=== PATIENT | female | born 1950 ===

== ENCOUNTER 2019-01-09 11:17 | Inpatient (IN) | payer MEDICAID, MEDICARE, OTHER ==
[2019-01-09 11:17] VITALS: BMI 25.7
[2019-01-09] MEDS ORDERED: Albuterol-Ipratrop 3 mg / 0.5 (3 ml) UD ONE ×3 (11:27→12:57)
[2019-01-09] MEDS ORDERED: Albuterol-Ipratrop 3 mg / 0.5 (3 ml) UD INH STA (11:50)
[2019-01-09 12:01] LABS: BASO # 0.1 K/uL (0.0-0.2); BASO % 0.4 % (0.0-2.0); EOS % 0.1 % (0.0-4.0); HEMOGLOBIN 14.7 g/dL (11.0-16.0); LYMPH # 1.1 K/uL (1.0-4.3); LYMPH % 8.1 % (20.0-40.0); MEAN CORPUSCULAR HEMOGLOBIN 27.5 pg (27.0-31.0); MEAN CORPUSCULAR HGB CONC 33.5 g/dL (33.0-37.0); MEAN PLATELET VOLUME 8.7 fL (7.2-11.7); MONO # 1.2 K/uL (0.0-0.8); MONO % 9.1 % (0.0-10.0); NEUT % 82.3 % (50.0-75.0); NRBC % 0.1 % (0.0-2.0); PLATELET COUNT 296 K/uL (130-400); RBC 5.36 Mil/uL (3.80-5.20); RED CELL DISTRIBUTION WIDTH 13.4 % (11.5-14.5); WHITE BLOOD COUNT 13.4 K/uL (4.8-10.8)
[2019-01-09 12:14] LABS: ALB/GLOB RATIO 1.3 (1.0-2.1); ALBUMIN 4.4 g/dL (3.5-5.0); ALT/SGPT 33 U/L (9-52); AST/SGOT 48 U/L (14-36); BLOOD UREA NITROGEN 13 mg/dL (7-17); CALCIUM 11.9 mg/dl (8.6-10.4); GFR NON-AFRICAN AMERICAN > 60
[2019-01-09] MEDS: Albuterol-Ipratrop 3 mg / 0.5 (3 ml) UD IH SCH ×3 (12:15→12:45)
[2019-01-09 12:38] LABS: LYMPHOCYTE 5 % (20-40); MONOCYTE 7 % (0-10); REACTIVE LYMPHOCYTES 2 % (0-0); TOTAL CELLS COUNTED 100
[2019-01-09 12:39] LABS: NEUTROPHIL 86 % (50-75); PLATELET ESTIMATE NORMAL (NORMAL)
--- NOTE | 2019-01-09 12:46 | C.PDOC ---
History Of Present Illness 68 y/o female,w/PMhx of COPD, presents to the ER complaining of shortness of breath and cough which has been present for the past 1 week. Patient states that she was evaluated for similar symptoms in [place] ER on 01/05/19. At the time, patient was treated with steroids and breathing treatments. She was discharged with prescription for steroids. She notes that she went to her PMD, today and he found her BP to be very elevated in the office. referred her to the ER for further evaluation and treatment.Denies having CP, fever,chills, nausea, vomiting, and leg swelling. Chief Complaint (Nursing): Shortness Of Breath History Per: Patient History/Exam Limitations: no limitations Onset/Duration Of Symptoms: Days Current Symptoms Are (Timing): Still Present Severity: Moderate Past Medical History Reviewed: Historical Data, Nursing Documentation, Vital Signs Vital Signs: Last Vital Signs Temp 98.6 F 01/09/19 11:21 Pulse 120 H 01/09/19 11:21 Resp 22 01/09/19 11:59 BP 164/97 H 01/09/19 11:21 Pulse Ox 95 01/09/19 11:59 - Medical History PMH: Asthma, Back Problems, COPD (Due to second hand smoke), Emphysema (Due to second hand smoke), HTN, Hypercholesterolemia, Kidney Stones, Sleep Apnea, Chronic Pain Denies: Arthritis, CHF, Hypothyroidism, Chronic Kidney Disease, Rheumatoid Arthritis Surgical History: Cholecystectomy Family History: States: No Known Family Hx - Social History Hx Alcohol Use: No Hx Substance Use: No - Immunization History Hx Tetanus Toxoid Vaccination: No Hx Influenza Vaccination: Yes Hx Pneumococcal Vaccination: Yes Review Of Systems Except As Marked, All Systems Reviewed And Found Negative. Constitutional: Negative for: Fever, Chills Cardiovascular: Negative for: Chest Pain Respiratory: Positive for: Cough, Shortness of Breath Gastrointestinal: Negative for: Nausea, Vomiting, Abdominal Pain Physical Exam - Physical Exam Appears: Non-toxic, No Acute Distress Skin: Normal Color, Warm, Dry Head: Atraumatic, Normacephalic Eye(s): bilateral: Normal Inspection Nose: Normal Oral Mucosa: Moist Neck: Supple Chest: Symmetrical Cardiovascular: Rhythm Regular Respiratory: Decreased Breath Sounds (decreased breath sounds at bilateral bases), No Rales, No Rhonchi, No Wheezing Extremity: Normal ROM, Other (no pitting edema) Neurological/Psych: Oriented x3, Normal Speech ED Course And Treatment - Laboratory Results Result Diagrams: 01/13/19 07:50 01/13/19 07:50 Lab Results: Total Bilirubin 0.7 mg/dL (0.2-1.3) 01/09/19 11:57 AST 48 U/L (14-36) H 01/09/19 11:57 ALT 33 U/L (9-52) 01/09/19 11:57 Alkaline Phosphatase 116 U/L (38-126) 01/09/19 11:57 Total Protein 7.9 g/dL (6.3-8.3) 01/09/19 11:57 Albumin 4.4 g/dL (3.5-5.0) 01/09/19 11:57 Globulin 3.5 gm/dL (2.2-3.9) 01/09/19 11:57 Albumin/Globulin Ratio 1.3 (1.0-2.1) 01/09/19 11:57 ECG: Interpreted By Me, Viewed By Me ECG Rhythm: Sinus Tachycardia Interpretation Of ECG: Sinus Tachycardia with normal intervals, normal axises, and no ST elevations Rate From EC O2 Sat by Pulse Oximetry: 95 (RA) Pulse Ox Interpretation: Normal - Other Rad CXR X-Ray: Viewed By Me, Read By Radiologist Interpretation: HISTORY: SOB. COMPARISON: None available. TECHNIQUE: Chest, one view. FINDINGS: Examination limited by habitus. LUNGS: No focal consolidation. Please note that chest x-ray has limited sensitivity for the detection of pulmonary masses. PLEURA: No significant pleural effusion identified. No definite pneumothorax . CARDIOVASCULAR: The cardiomediastinal silhouette appears within normal limits of size. No significant atherosclerotic calcification present. OSSEOUS STRUCTURES: No acute osseous abnormality ident ified. VISUALIZED UPPER ABDOMEN: Unremarkable. OTHER FINDINGS: None. IMPRESSION: No focal consolidation. Medical Decision Making Medical Decision Making: Plan: --Labs --CXR --Duoneb --Solu-Medrol IV Updates: 13:57 Peak Flow is 200 after multiple treatments. Plan admit for further evaluation and management. Patient agreeable w/POC. 14:30 Case discussed with . Patient will be admitted under the service of . Disposition Counseled Patient/Family Regarding: Studies Performed, Diagnosis - Disposition Disposition: HOSPITALIZED Disposition Time: 14:30 Condition: FAIR - Clinical Impression Clinical Impression: COPD exacerbation - Scribe Statement The provider has reviewed the documentation as recorded by the Scribe Liana German Provider Attestation: All medical record entries made by the Scribe were at my direction and personally dictated by me. I have reviewed the chart and agree that the record accurately reflects my personal performance of the history, physical exam, medical decision making, and the department course for this patient. I have also personally directed, reviewed, and agree with the discharge instructions and disposition.
--- NOTE | 2019-01-09 13:06 | RAD ---
HISTORY: SOB COMPARISON: None available TECHNIQUE: Chest, one view. FINDINGS: Examination limited by habitus. LUNGS: No focal consolidation. Please note that chest x-ray has limited sensitivity for the detection of pulmonary masses. PLEURA: No significant pleural effusion identified. No definite pneumothorax . CARDIOVASCULAR: The cardiomediastinal silhouette appears within normal limits of size. No significant atherosclerotic calcification present. OSSEOUS STRUCTURES: No acute osseous abnormality identified. VISUALIZED UPPER ABDOMEN: Unremarkable. OTHER FINDINGS: None. IMPRESSION: No focal consolidation.
--- NOTE | 2019-01-09 14:35 | CP.PCM.HP ---
History of Present Illness - History of Present Illness History of Present Illness: 68 y/o female,w/PMhx of COPD, presents to the ER complaining of shortness of breath and cough which has been present for the past 1 week. Patient states that she was evaluated for similar symptoms in [place] ER on 01/05/19. At the time, patient was treated with steroids and breathing treatments. She was discharged with prescription for steroids Out patient she did not improve and presented to er Present on Admission - Present on Admission Any Indicators Present on Admission: No Review of Systems - Constitutional Constitutional: absent: As Per HPI, Anorexia, Chills, Daytime Sleepiness, Excessive Sweating, Fatigue, Fever, Frequent Falls, Headache, Increased Appetite, Lethargy, Malaise, Night Sweats, Snoring, Sleep Apnea, Weight Gain, Weight Loss, Weakness, Other - EENT Eyes: absent: As Per HPI, Blind Spots, Blurred Vision, Change in Vision, Decreased Night Vision, Diplopia, Discharge, Dry Eye, Exophthalmos, Floaters, Irritation, Itchy Eyes, Loss of Peripheral Vision, Pain, Photophobia, Requires Corrective Lenses, Sees Flashes, Spots in Vision, Tunnel Vision, Other Visual Disturbances, Loss of Vision, Other Ears: absent: As Per HPI, Decreased Hearing, Ear Discharge, Ear Pain, Tinnitus, Abnormal Hearing, Disequilibrium, Dizziness, Other Nose/Mouth/Throat: absent: As Per HPI, Epistaxis, Nasal Congestion, Nasal Discharge, Nasal Obstruction, Nasal Trauma, Nose Pain, Post Nasal Drip, Sinus Pain, Sinus Pressure, Bleeding Gums, Change in Voice, Dental Pain, Dry Mouth, Dysphagia, Halitosis, Hoarsness, Lip Swelling, Mouth Lesions, Mouth Pain, Odynophagia, Sore Throat, Throat Swelling, Tongue Swelling, Facial Pain, Neck Pain, Neck Mass, Other - Cardiovascular Cardiovascular: absent: As Per HPI, Acrocyanosis, Chest Pain, Chest Pain at Rest, Chest Pain with Activity, Claudication, Diaphoresis, Dyspnea, Dyspnea on Exertion, Edema, Irregular Heart Rhythm, Pain Radiating to Arm/Neck/Jaw, Leg Edema, Leg Ulcers, Lightheadedness, Orthopnea, Palpitations, Paroxysmal Nocturnal Dyspnea, Pedal Edema, Radiating Pain, Rapid Heart Rate, Slow Heart Rate, Syncope, Other - Respiratory Respiratory: Cough, Dyspnea on Exertion, Wheezing, Chest Congestion. absent: Hemoptysis, Stridor - Gastrointestinal Gastrointestinal: absent: As Per HPI, Abdominal Pain, Belching, Bloating, Change in Bowel Habits, Change in Stool Character, Coffee Ground Emesis, Constipation, Cramping, Diarrhea, Dyspepsia, Dysphagia, Early Satiety, Excessive Flatus, Fecal Incontinence, Heartburn, Hematemesis, Hematochezia, Loose Stools, Melena, Nausea, Odynophagia, Temesmus, Vomiting, Other - Genitourinary Genitourinary: absent: As Per HPI, Change in Urinary Stream, Difficulty Urinating, Dysuria, Flank Pain, Hematuria, Pyuria, Nocturia, Urinary Incontinence, Urinary Frequency, Urinary Hesitance, Urinary Urgency, Voiding Freq/Small Amts, Freq UTI, Hx Renal/Bladder Calculi, Hx /Renal Surgery, Bladder Distension, Other Past Patient History - Infectious Disease Hx of Infectious Diseases: None - Past Medical History & Family History Past Medical History?: Yes - Past Social History Smoking Status: Never Smoked - CARDIAC Hx Congestive Heart Failure: No Hx Hypercholesterolemia: Yes Hx Hypertension: Yes - PULMONARY Hx Asthma: Yes Hx Chronic Obstructive Pulmonary Disease (COPD): Yes (Due to second hand smoke) Hx Emphysema: Yes (Due to second hand smoke) Hx Sleep Apnea: Yes - NEUROLOGICAL Hx Neurological Disorder: Yes Hx Vertigo: Yes - HEENT Hx HEENT Problems: No - RENAL Hx Chronic Kidney Disease: No Hx Kidney Stones: Yes - ENDOCRINE/METABOLIC Hx Hypothyroidism: No - HEMATOLOGICAL/ONCOLOGICAL Hx Blood Disorders: No - INTEGUMENTARY Hx Dermatological Problems: No Other/Comment: Lump and mole removed from the back. - MUSCULOSKELETAL/RHEUMATOLOGICAL Hx Arthritis: No Hx Rheumatoid Arthritis: No - GASTROINTESTINAL Hx Gastrointestinal Disorders: No - GENITOURINARY/GYNECOLOGICAL Hx Genitourinary Disorders: No Other/Comment: Hysterectomy. - PSYCHIATRIC Hx Substance Use: No - SURGICAL HISTORY Hx Cholecystectomy: Yes - ANESTHESIA Hx Anesthesia: Yes Hx Anesthesia Reactions: No Hx Malignant Hyperthermia: No Meds Allergies/Adverse Reactions: Allergies Allergy/AdvReac Type Severity Reaction Status Date / Time dexamethasone Allergy RASH Verified 07/31/18 12:45 Physical Exam - Constitutional Appears: Well - Eye Exam Eye Exam: EOMI, Normal appearance, PERRL - ENT Exam ENT Exam: Mucous Membranes Moist, Normal Exam - Neck Exam Neck exam: Positive for: Normal Inspection - Respiratory Exam Respiratory Exam: Rhonchi, Wheezes - Cardiovascular Exam Cardiovascular Exam: REGULAR RHYTHM - GI/Abdominal Exam GI & Abdominal Exam: Normal Bowel Sounds, Soft. absent: Tenderness - Extremities Exam Extremities exam: Positive for: normal inspection - Back Exam Back exam: NORMAL INSPECTION - Neurological Exam Neurological exam: Alert, CN II-XII Intact, Normal Gait, Oriented x3, Reflexes Normal Results - Vital Signs Recent Vital Signs: Last Vital Signs Temp 98.6 F 01/09/19 11:21 Pulse 120 H 01/09/19 11:21 Resp 22 01/09/19 11:59 BP 164/97 H 01/09/19 11:21 Pulse Ox 95 01/09/19 14:13 - Labs Result Diagrams: 01/09/19 11:57 01/09/19 11:57 Labs: Laboratory Results - last 24 hr 01/09/19 01/09/19 11:57 11:57 WBC 13.4 H RBC 5.36 H Hgb 14.7 Hct 43.9 MCV 82.0 MCH 27.5 MCHC 33.5 RDW 13.4 Plt Count 296 MPV 8.7 Neut % (Auto) 82.3 H Lymph % (Auto) 8.1 L [place] % (Auto) 9.1 Eos % (Auto) 0.1 Baso % (Auto) 0.4 Neut # (Auto) 11.0 H Lymph # (Auto) 1.1 [place] # (Auto) 1.2 H Eos # (Auto) 0.0 Baso # (Auto) 0.1 Neutrophils % (Manual) 86 H Lymphocytes % (Manual) 5 L Reactive Lymphs % 2 H Monocytes % (Manual) 7 Platelet Estimate Normal Sodium 136 Potassium 3.7 Chloride 98 Carbon Dioxide 29 Anion Gap 13 BUN 13 Creatinine 0.9 Est GFR ( Amer) > 60 Est GFR (Non-Af Amer) > 60 Random Glucose 111 H Calcium 11.9 H Total Bilirubin 0.7 AST 48 H ALT 33 Alkaline Phosphatase 116 Troponin I < 0.0120 Total Protein 7.9 Albumin 4.4 Globulin 3.5 Albumin/Globulin Ratio 1.3 Assessment & Plan (1) COPD exacerbation Status: Acute (2) Hypertension Status: Acute (3) Leukocytosis Status: Acute
[2019-01-09] MEDS: Albuterol-Ipratrop 3 mg / 0.5 (3 ml) UD INH SCH ×3 (15:15→23:35)
[2019-01-09] MEDS: MethylPREDNISolone 40 mg Vial IV SCH ×2 (16:45→23:35)
[2019-01-10] MEDS: Albuterol-Ipratrop 3 mg / 0.5 (3 ml) UD INH SCH ×5 (03:16→19:09)
[2019-01-10 07:49] LABS: BASO % 0.1 % (0.0-2.0); HEMOGLOBIN 13.4 g/dL (11.0-16.0); LYMPH # 0.9 K/uL (1.0-4.3); LYMPH % 8.1 % (20.0-40.0); MEAN CORPUSCULAR HEMOGLOBIN 27.7 pg (27.0-31.0); MEAN CORPUSCULAR HGB CONC 33.8 g/dL (33.0-37.0); MEAN PLATELET VOLUME 8.5 fL (7.2-11.7); MONO # 0.9 K/uL (0.0-0.8); MONO % 7.7 % (0.0-10.0); NEUT # 9.8 K/uL (1.8-7.0); NEUT % 84.1 % (50.0-75.0); PLATELET COUNT 289 K/uL (130-400); RBC 4.85 Mil/uL (3.80-5.20); RED CELL DISTRIBUTION WIDTH 13.8 % (11.5-14.5); WHITE BLOOD COUNT 11.6 K/uL (4.8-10.8)
[2019-01-10 08:06] LABS: ALB/GLOB RATIO 1.2 (1.0-2.1); ALBUMIN 3.8 g/dL (3.5-5.0); ALT/SGPT 33 U/L (9-52); AST/SGOT 30 U/L (14-36); BLOOD UREA NITROGEN 17 mg/dL (7-17); CALCIUM 11.3 mg/dl (8.6-10.4); GFR NON-AFRICAN AMERICAN > 60
[2019-01-10] MEDS: MethylPREDNISolone 40 mg Vial IV SCH ×3 (08:45→23:48)
[2019-01-10 08:57] LABS: BANDS 1 % (0-2); LYMPHOCYTE 3 % (20-40); MONOCYTE 5 % (0-10); NEUTROPHIL 91 % (50-75); PLATELET ESTIMATE NORMAL (NORMAL); TOTAL CELLS COUNTED 100
[2019-01-10] MEDS: Enoxaparin 40 mg Syringe SC SCH (10:06)
[2019-01-10] MEDS: guaiFENesin 100 mg/5 ml Syrup UD PO PRN ×4 (10:09→23:54)
[2019-01-10] MEDS: Sodium Chloride 0.9% 1,000 ML IV SCH ×2 (10:11→21:49)
--- NOTE | 2019-01-10 12:19 | CP.PCM.PN ---
Subjective - Date & Time of Evaluation Date of Evaluation: 01/10/19 Time of Evaluation: 12:18 - Subjective Subjective: CHIEF COMPLAINTS TODAY : SOB AND WHEEZING ROS. HEENT : N. Resp : No or hemoptysis Cardio : No anginal CP, PND, orthopnea, palpitation GI : No abd.pain, n/v ,diarrhea or GI bleeding . 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 Musculoskel : No joint swelling , Derm : No rash Psych : Normal affect. Ext : No swelling ,calf pain PE. Pt. is alert awake in no distress. V.S As noted in the chart Head ,ear nose,throat and eyes : Normal. Neck : Supple with normal carotids. Lungs: ERIC POOR AIR ENTRY WITH WHEEZE Heart : S1 & S2 normal with S4. No murmur. Abd : Soft non tender with normal bowel sounds. Neuro : Moves all ext. with no localized deficit. Ext : No edema with intact pulses.Non tender calves Derm : No rashes or decubitus ulcer. LABS/RADIOLOGY: ASSESSMENT/PLAN : CONT IV AB AND STEROIDS Objective - Vital Signs/Intake and Output Vital Signs (last 24 hours): Temp Pulse Resp BP Pulse Ox 98.0 F 99 H 20 129/76 98 01/10/19 08:32 01/10/19 12:00 01/10/19 08:32 01/10/19 08:32 01/10/19 08:32 - Medications Medications: Current Medications Albuterol/Ipratropium (Duoneb 3 Mg/0.5 Mg (3 Ml) Ud) 3 ml INH RQ4 [facility] Last Admin: 01/10/19 11:30 Dose: 3 ml Enoxaparin Sodium (Lovenox) 40 mg SC DAILY [facility] Last Admin: 01/10/19 10:06 Dose: 40 mg Gabapentin (Neurontin) 100 mg PO Q8 [facility] Last Admin: 01/10/19 06:12 Dose: Not Given Guaifenesin (Robitussin) 100 mg PO Q4H PRN PRN Reason: Cough Last Admin: 01/10/19 10:09 Dose: 100 mg Hydrochlorothiazide (Hydrodiuril) 25 mg PO DAILY [facility] Last Admin: 01/10/19 10:05 Dose: 25 mg Ceftriaxone Sodium 1 gm/ (Sodium Chloride) 100 mls @ 100 mls/hr IVPB Q24H [facility]; Protocol Last Admin: 01/09/19 16:40 Dose: 100 mls/hr Sodium Chloride (Sodium Chloride 0.9%) 1,000 mls @ 80 mls/hr IV .[id number] [facility] Last Admin: 01/10/19 10:11 Dose: 80 mls/hr Losartan Potassium (Cozaar) 100 mg PO DAILY [facility] Last Admin: 01/10/19 10:05 Dose: 100 mg Methylprednisolone (Solu-Medrol) 60 mg IV Q8H [facility] Last Admin: 01/10/19 08:45 Dose: 60 mg Rosuvastatin Calcium (Crestor) 5 mg PO HS [facility] Last Admin: 01/09/19 21:34 Dose: 5 mg - Labs Labs: 01/10/19 07:38 01/10/19 07:38 Assessment and Plan (1) COPD exacerbation Status: Acute (2) Hypertension Status: Acute (3) Leukocytosis Status: Acute
[2019-01-10] MEDS: Fluticasone Nasal 50 mcg/Spray NAS SCH (21:41)
[2019-01-11] MEDS: Albuterol-Ipratrop 3 mg / 0.5 (3 ml) UD INH SCH ×6 (00:15→20:58)
[2019-01-11] MEDS: guaiFENesin 100 mg/5 ml Syrup UD PO PRN (04:33)
[2019-01-11 07:45] LABS: BLOOD UREA NITROGEN 15 mg/dL (7-17); GFR NON-AFRICAN AMERICAN > 60
[2019-01-11] MEDS: MethylPREDNISolone 40 mg Vial IV SCH ×2 (08:19→14:48)
[2019-01-11] MEDS: Fluticasone Nasal 50 mcg/Spray NAS SCH ×2 (08:20→21:00)
[2019-01-11] MEDS: Enoxaparin 40 mg Syringe SC SCH (09:41)
[2019-01-11] MEDS: Sodium Chloride 0.9% 1,000 ML IV SCH ×2 (11:50→17:42)
--- NOTE | 2019-01-11 13:58 | CP.PCM.PN ---
Subjective - Date & Time of Evaluation Date of Evaluation: 01/11/19 Time of Evaluation: 13:58 - Subjective Subjective: CHIEF COMPLAINTS TODAY : SOB AND WHEEZING ROS. HEENT : N. Resp : No or hemoptysis Cardio : No anginal CP, PND, orthopnea, palpitation GI : No abd.pain, n/v ,diarrhea or GI bleeding . 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 Musculoskel : No joint swelling , Derm : No rash Psych : Normal affect. Ext : No swelling ,calf pain PE. Pt. is alert awake in no distress. V.S As noted in the chart Head ,ear nose,throat and eyes : Normal. Neck : Supple with normal carotids. Lungs: ERIC POOR AIR ENTRY WITH WHEEZE Heart : S1 & S2 normal with S4. No murmur. Abd : Soft non tender with normal bowel sounds. Neuro : Moves all ext. with no localized deficit. Ext : No edema with intact pulses.Non tender calves Derm : No rashes or decubitus ulcer. LABS/RADIOLOGY: ASSESSMENT/PLAN : CONT IV AB AND STEROIDS Objective - Vital Signs/Intake and Output Vital Signs (last 24 hours): Temp Pulse Resp BP Pulse Ox 97.9 F 59 L 20 142/77 96 01/11/19 07:00 01/11/19 08:00 01/11/19 07:00 01/11/19 07:00 01/11/19 07:00 - Medications Medications: Current Medications Albuterol/Ipratropium (Duoneb 3 Mg/0.5 Mg (3 Ml) Ud) 3 ml INH RQ4 [facility] Last Admin: 01/11/19 11:30 Dose: 3 ml Enoxaparin Sodium (Lovenox) 40 mg SC DAILY [facility] Last Admin: 01/11/19 09:41 Dose: 40 mg Fluticasone Propionate (Flonase) 0 spr SWATI Q12H [facility] Last Admin: 01/11/19 08:20 Dose: 1 spr Gabapentin (Neurontin) 100 mg PO Q8 [facility] Last Admin: 01/11/19 13:21 Dose: Not Given Guaifenesin (Robitussin) 100 mg PO Q4H PRN PRN Reason: Cough Last Admin: 01/11/19 04:33 Dose: 100 mg Hydrochlorothiazide (Hydrodiuril) 25 mg PO DAILY [facility] Last Admin: 01/11/19 09:43 Dose: 25 mg Ceftriaxone Sodium 1 gm/ (Sodium Chloride) 100 mls @ 100 mls/hr IVPB Q24H [facility]; Protocol Last Admin: 01/10/19 17:12 Dose: 100 mls/hr Sodium Chloride (Sodium Chloride 0.9%) 1,000 mls @ 80 mls/hr IV .[id number] [facility] Last Admin: 01/11/19 11:50 Dose: Not Given Losartan Potassium (Cozaar) 100 mg PO DAILY [facility] Last Admin: 01/11/19 09:41 Dose: 100 mg Methylprednisolone (Solu-Medrol) 60 mg IV Q8H [facility] Last Admin: 01/11/19 08:19 Dose: 60 mg Rosuvastatin Calcium (Crestor) 5 mg PO HS [facility] Last Admin: 01/10/19 21:42 Dose: 5 mg - Labs Labs: 01/10/19 07:38 01/11/19 07:14 Assessment and Plan (1) COPD exacerbation Status: Acute (2) Hypertension Status: Acute (3) Leukocytosis Status: Acute
--- NOTE | 2019-01-11 14:47 | CARD ---
APPROVED REPORT Date of service: 01/11/2019 EXAM: Two-dimensional and M-mode echocardiogram with Doppler and color Doppler. Other Information Quality : GoodRhythm : INDICATION Dyspnea Congestive Heart Failure COPD RISK FACTORS Hypertension Hyperlipidemia 2D DIMENSIONS IVSd0.9 (0.7-1.1cm)LVDd4.3 (3.9-5.9cm) PWd1.0 (0.7-1.1cm)LA Tjqbak00 (18-58mL) LVDs2.7 (2.5-4.0cm)FS (%) 37.6 % LVEF (%)68.0 (>50%)LVEF (Guardado's)65.88 % IVC0.00 cm M-Mode DIMENSIONS RVDd2.50 (2.1-3.2cm)Left Atrium (MM)3.24 (2.5-4.0cm) IVSd0.94 (0.7-1.1cm)Aortic Root2.99 (2.2-3.7cm) LVDd4.86 (4.0-5.6cm)Aortic Cusp Exc.2.07 (1.5-2.0cm) PWd0.89 (0.7-1.1cm)FS (%) 40 % LVDs2.91 (2.0-3.8cm)TAPSE15.29 cm LVEF (%)71 (>50%) Mitral Valve MV E Qhrabzqe75.0cm/sMV A Jnwkfgid502.1cm/sE/A ratio0.7 TDI Lateral E' Peak V8.42cm/sMedial E' Peak V7.84cm/sE/Lateral E'10.2 E/Medial E'11.0 Tricuspid Valve TR Peak [id number]/sTR Peak Gr.[id number] LEFT VENTRICLE The left ventricle is normal size. There is normal left ventricular wall thickness. The left ventricular function is normal. The left ventricular ejection fraction is within the normal range. No regional wall motion abnormalities noted. The left ventricular diastolic function is normal. No left ventricle thrombus noted on this study. There is no ventricular septal defect visualized. There is no left ventricular aneurysm. There is no mass noted in the left ventricle. RIGHT VENTRICLE The right ventricle is normal size. There is normal right ventricular wall thickness. The right ventricular systolic function is normal. ATRIA The left atrium size is normal. The right atrium size is normal. The interatrial septum is intact with no evidence for an atrial septal defect. AORTIC VALVE The aortic valve is normal in structure and function. No aortic regurgitation is present. There is no aortic valvular stenosis. There is no aortic valvular vegetation. MITRAL VALVE The mitral valve is normal in structure and function. There is no evidence of mitral valve prolapse. There is no mitral valve stenosis. There is no mitral valve regurgitation noted. TRICUSPID VALVE The tricuspid valve is normal in structure and function. There is no tricuspid valve regurgitation noted. There is no tricuspid valve prolapse or vegetation. There is no tricuspid valve stenosis. PULMONIC VALVE The pulmonary valve is normal in structure and function. There is no pulmonic valvular regurgitation. There is no pulmonic valvular stenosis. GREAT VESSELS The aortic root is normal in size. The ascending aorta is normal in size. The pulmonary artery is normal. The IVC is normal in size and collapses >50% with inspiration. PERICARDIAL EFFUSION The pericardium appears normal. There is no pleural effusion. <Conclusion> The left ventricular function is normal. The left ventricular ejection fraction is within the normal range. No regional wall motion abnormalities noted.
[2019-01-11] MEDS: Promethazine/Cod 6.25mg-10mg/5ml Syr UD PO PRN (17:37)
--- NOTE | 2019-01-11 22:10 | CP.PCM.CON ---
History of Present Illness - History of Present Illness History of Present Illness: INFECTIOUS DISEASE CONSULT; HPI; 68 y/o female,w/PMhx of COPD, presents to the ER complaining of shortness of breath and cough which has been present for the past 1 week. Patient states that she was evaluated for similar symptoms in [place] [facility] on 01/05/19. At the time, patient was treated with steroids and breathing treatments. She was discharged with prescription for steroids Out patient she did not improve and presented to ER. PATIENT WAS PLACED ON iv ROCEPHIN BY THE PRIVATE MD.PATIENT CONTINUES TO COMPLAIN OF NONPRODUCTIVE COUGH AND FEELS ALL THE SECRETIONS ARE CLOGGED UP AND UPPER RESPIRATORY TRACT INFECTION WITH SINUS CONGESTION. PATIENT GOT WORSE TODAY MORE SHORT OF BREATH AND INCREASING COUGH. pATIENT IS UP-TO-DATE ON HER IMMUNIZATIZATIONS. DENIES ANY RECENT TRAVEL OR SICK CONTACTS. INFECTIOUS DISEASE CONSULTATION REQUESTED BY PMD FOR EXACERBATION OFF COPD /AND FAILURE TO IMPROVE ON PRESENT THERAPY. PATIENT STATES SHE HAS BEEN UNABLE TO SLEEP X FOR 2 NIGHTS BECAUSE OF INCREASING COUGH. PMH: Asthma, Back Problems, COPD (Due to second hand smoke), Emphysema (Due to second hand smoke), HTN, Hypercholesterolemia, Kidney Stones, Sleep Apnea, Chronic Pain Denies: Arthritis, CHF, Hypothyroidism, Chronic Kidney Disease, Rheumatoid Arthritis Surgical History: Cholecystectomy Family History: States: No Known Family Hx - Social History Hx Alcohol Use: No Hx Substance Use: No - Immunization History Hx Tetanus Toxoid Vaccination: No Hx Influenza Vaccination: Yes Hx Pneumococcal Vaccination: Yes ALLERGY ; DEXAMETHASONE. Review of Systems - Constitutional Constitutional: Malaise, Weakness. absent: Chills, Fever - EENT Eyes: absent: Change in Vision Ears: absent: Ear Pain Nose/Mouth/Throat: Nasal Congestion, Post Nasal Drip, Sinus Pressure. absent: Mouth Lesions, Sore Throat - Cardiovascular Cardiovascular: Pedal Edema. absent: Chest Pain - Respiratory Respiratory: Cough, Dyspnea, Chest Congestion. absent: Hemoptysis - Gastrointestinal Gastrointestinal: absent: Diarrhea, Nausea, Odynophagia, Vomiting - Genitourinary Genitourinary: absent: Dysuria, Urinary Hesitance - Neurological Neurological: absent: Headaches - Psychiatric Psychiatric: Abnormal Sleep Pattern - Hematologic/Lymphatic Hematologic: As Per HPI. absent: Easy Bleeding, Easy Bruising, Lymphadenopathy Past Patient History - Infectious Disease Hx of Infectious Diseases: None - Past Medical History & Family History Past Medical History?: Yes - Past Social History Smoking Status: Never Smoked - CARDIAC Hx Cardiac Disorders: Yes Hx Congestive Heart Failure: No Hx Hypercholesterolemia: Yes Hx Hypertension: Yes - PULMONARY Hx Respiratory Disorders: Yes Hx Chronic Obstructive Pulmonary Disease (COPD): Yes (Emphysema) - NEUROLOGICAL Hx Neurological Disorder: Yes Hx Vertigo: Yes - HEENT Hx HEENT Problems: No - RENAL Hx Chronic Kidney Disease: No Hx Kidney Stones: Yes - ENDOCRINE/METABOLIC Hx Endocrine Disorders: No Hx Hypothyroidism: No - HEMATOLOGICAL/ONCOLOGICAL Hx Blood Disorders: No - INTEGUMENTARY Hx Dermatological Problems: No Other/Comment: Lump and mole removed from the back. - MUSCULOSKELETAL/RHEUMATOLOGICAL Hx Musculoskeletal Disorders: Yes Hx Arthritis: No Hx Falls: Yes Hx Rheumatoid Arthritis: No - GASTROINTESTINAL Hx Gastrointestinal Disorders: No - GENITOURINARY/GYNECOLOGICAL Hx Genitourinary Disorders: No Other/Comment: Hysterectomy. - PSYCHIATRIC Hx Substance Use: No - SURGICAL HISTORY Hx Surgeries: Yes Hx Cholecystectomy: Yes - ANESTHESIA Hx Anesthesia: Yes Hx Anesthesia Reactions: No Hx Malignant Hyperthermia: No Has any member of the family had a problem w/ anesthesia?: No Meds Allergies/Adverse Reactions: Allergies Allergy/AdvReac Type Severity Reaction Status Date / Time dexamethasone Allergy RASH Verified 07/31/18 12:45 - Medications Medications: Current Medications Albuterol/Ipratropium (Duoneb 3 Mg/0.5 Mg (3 Ml) Ud) 3 ml INH RQ4 [facility] Last Admin: 01/11/19 16:10 Dose: 3 ml Enoxaparin Sodium (Lovenox) 40 mg SC DAILY [facility] Last Admin: 01/11/19 09:41 Dose: 40 mg Fluticasone Propionate (Flonase) 0 spr SWATI Q12H [facility] Last Admin: 01/11/19 21:00 Dose: 1 spr Gabapentin (Neurontin) 100 mg PO Q8 [facility] Last Admin: 01/11/19 21:36 Dose: Not Given Guaifenesin (Mucinex La) 600 mg PO BID [facility] Hydrochlorothiazide (Hydrodiuril) 25 mg PO DAILY [facility] Last Admin: 01/11/19 09:43 Dose: 25 mg Ceftriaxone Sodium 1 gm/ (Sodium Chloride) 100 mls @ 100 mls/hr IVPB Q24H [facility]; Protocol Last Admin: 01/11/19 16:25 Dose: 100 mls/hr Sodium Chloride (Sodium Chloride 0.9%) 1,000 mls @ 80 mls/hr IV .[id number] [facility] Last Admin: 01/11/19 17:42 Dose: 80 mls/hr Losartan Potassium (Cozaar) 100 mg PO DAILY [facility] Last Admin: 01/11/19 09:41 Dose: 100 mg Methylprednisolone (Solu-Medrol) 60 mg IV Q8H [facility] Last Admin: 01/11/19 14:48 Dose: 60 mg Promethazine HCl/Codeine (Phenergan/Codeine Oral Syrup) 5 ml PO Q4 PRN PRN Reason: Cough Last Admin: 01/11/19 17:37 Dose: 5 ml Rosuvastatin Calcium (Crestor) 5 mg PO HS [facility] Last Admin: 01/11/19 21:33 Dose: 5 mg Zolpidem Tartrate (Ambien) 5 mg PO HS PRN PRN Reason: Insomnia Last Admin: 01/11/19 21:33 Dose: 5 mg Physical Exam - Constitutional Appears: No Acute Distress - Head Exam Head Exam: NORMAL INSPECTION - Eye Exam Eye Exam: EOMI, PERRL - ENT Exam ENT Exam: Normal Oropharynx - Neck Exam Neck exam: Positive for: Normal Inspection. Negative for: Lymphadenopathy, Meningismus - Respiratory Exam Respiratory Exam: Prolonged Expiratory Phase, Wheezes, NORMAL BREATHING PATTERN - Cardiovascular Exam Cardiovascular Exam: REGULAR RHYTHM, +S1, +S2 - GI/Abdominal Exam GI & Abdominal Exam: Normal Bowel Sounds, Soft. absent: Organomegaly, Tenderness - Extremities Exam Extremities exam: Positive for: pedal edema, pedal pulses present. Negative for: calf tenderness, tenderness - Neurological Exam Neurological exam: Alert, CN II-XII Intact, Reflexes Normal - Psychiatric Exam Psychiatric exam: Normal Mood - Skin Skin Exam: Normal Color, Warm Results - Vital Signs Recent Vital Signs: Last Vital Signs Temp 98.3 F 01/11/19 15:00 Pulse 86 01/11/19 16:00 Resp 20 01/11/19 15:00 BP 152/73 H 01/11/19 15:00 Pulse Ox 96 01/11/19 15:00 - Labs Result Diagrams: 01/10/19 07:38 01/11/19 07:14 Labs: Laboratory Results - last 24 hr 01/11/19 07:14 Sodium 136 Potassium 3.9 Chloride 102 Carbon Dioxide 29 Anion Gap 9 L BUN 15 Creatinine 0.8 Est GFR ( Amer) > 60 Est GFR (Non-Af Amer) > 60 Random Glucose 152 H Calcium 11.0 H - Imaging and Cardiology Chest x-ray Status: Report reviewed by me (NO FOCAL CONSOLIDATION) Assessment & Plan (1) COPD exacerbation Assessment and Plan: PANCULTURE. ATYPICAL TITERS. ESR CRP. INCREASE iv ROCEPHIN 1 G iv PIGGYBACK EVERY 12 HOURLY 01/11/19. ADD iv ZITHROMAX 500MG IVPB DAILY DAILY 01/12/19. ADD MUCINEX XL 600MG PO BID 01/11/[address] SINUSES W/O CONTRAST R/O ACUTE SINUSITIS. CONTINUE iv sOLU-mEDROL 60 MG EVERY 8 HOURLY PER PMD PULMONARY TOILET. DROPLET PRECAUTIONS FOR PERTUSSIS CASE DISCUSSED WITH THE STAFF AND PMD WILL F/U ALONG WITH YOU. Status: Acute (2) Hyperlipidemia Status: Acute (3) Hypertension Status: Acute
[2019-01-12] MEDS: MethylPREDNISolone 40 mg Vial IV SCH ×4 (00:10→22:52)
[2019-01-12] MEDS: Albuterol-Ipratrop 3 mg / 0.5 (3 ml) UD INH SCH ×7 (00:16→23:57)
[2019-01-12] MEDS: Sodium Chloride 0.9% 1,000 ML IV SCH ×2 (01:23→09:42)
[2019-01-12] MEDS: Promethazine/Cod 6.25mg-10mg/5ml Syr UD PO PRN ×3 (01:28→12:49)
[2019-01-12 06:52] LABS: HEMOGLOBIN 12.7 g/dL (11.0-16.0); LYMPH # 0.6 K/uL (1.0-4.3); LYMPH % 4.3 % (20.0-40.0); MEAN CELL VOLUME 82.4 fL (81.0-99.0); MEAN CORPUSCULAR HEMOGLOBIN 27.2 pg (27.0-31.0); MEAN PLATELET VOLUME 8.5 fL (7.2-11.7); MONO # 0.5 K/uL (0.0-0.8); MONO % 3.5 % (0.0-10.0); NEUT # 13.6 K/uL (1.8-7.0); NEUT % 92.2 % (50.0-75.0); PLATELET COUNT 297 K/uL (130-400); RBC 4.67 Mil/uL (3.80-5.20); RED CELL DISTRIBUTION WIDTH 13.8 % (11.5-14.5); WHITE BLOOD COUNT 14.7 K/uL (4.8-10.8)
[2019-01-12 07:02] LABS: ALB/GLOB RATIO 1.1 (1.0-2.1); ALBUMIN 3.2 g/dL (3.5-5.0); ALT/SGPT 32 U/L (9-52); AST/SGOT 24 U/L (14-36); BLOOD UREA NITROGEN 16 mg/dL (7-17); CALCIUM 10.7 mg/dl (8.6-10.4); GFR NON-AFRICAN AMERICAN > 60
[2019-01-12] MEDS: Fluticasone Nasal 50 mcg/Spray NAS SCH ×2 (08:22→20:04)
[2019-01-12 09:34] LABS: BANDS 1 % (0-2); LYMPHOCYTE 5 % (20-40); TOTAL CELLS COUNTED 100
[2019-01-12 09:35] LABS: MONOCYTE 3 % (0-10); NEUTROPHIL 91 % (50-75); PLATELET ESTIMATE NORMAL (NORMAL)
[2019-01-12] MEDS: Enoxaparin 40 mg Syringe SC SCH (09:37)
[2019-01-12] MEDS: guaiFENesin 600 mg ER Tab PO SCH ×2 (09:37→17:35)
[2019-01-12] MEDS: Azithromycin 500 MG in Sodium Chloride 0.9% 250 ML IVPB SCH (09:38)
[2019-01-12 11:27] LABS: ERYTHROCYTE SEDIMENTATION RATE 18 mm/hr (0-20)
--- NOTE | 2019-01-12 13:18 | CP.PCM.PN ---
Subjective - Date & Time of Evaluation Date of Evaluation: 01/12/19 Time of Evaluation: 13:17 - Subjective Subjective: CHIEF COMPLAINTS TODAY : PERSISTENT COUGHING NOT MUCH EXPECTORATION SOB AND WHEEZING ROS. HEENT : N. Resp : No or hemoptysis Cardio : No anginal CP, PND, orthopnea, palpitation GI : No abd.pain, n/v ,diarrhea or GI bleeding . 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 Musculoskel : No joint swelling , Derm : No rash Psych : Normal affect. Ext : No swelling ,calf pain PE. Pt. is alert awake in no distress. V.S As noted in the chart Head ,ear nose,throat and eyes : Normal. Neck : Supple with normal carotids. Lungs: ERIC POOR AIR ENTRY WITH WHEEZE Heart : S1 & S2 normal with S4. No murmur. Abd : Soft non tender with normal bowel sounds. Neuro : Moves all ext. with no localized deficit. Ext : No edema with intact pulses.Non tender calves Derm : No rashes or decubitus ulcer. LABS/RADIOLOGY: ISOLATION FOR PERTUSSIS ASSESSMENT/PLAN : CONT IV AB AND STEROIDS Objective - Vital Signs/Intake and Output Vital Signs (last 24 hours): Temp Pulse Resp BP Pulse Ox 98.0 F 94 H 18 145/71 97 01/12/19 09:13 01/12/19 09:13 01/12/19 09:13 01/12/19 09:13 01/11/19 23:56 - Medications Medications: Current Medications Albuterol/Ipratropium (Duoneb 3 Mg/0.5 Mg (3 Ml) Ud) 3 ml INH RQ4 [facility] Last Admin: 01/12/19 11:28 Dose: 3 ml Enoxaparin Sodium (Lovenox) 40 mg SC DAILY [facility] Last Admin: 01/12/19 09:37 Dose: 40 mg Fluticasone Propionate (Flonase) 0 spr SWATI Q12H [facility] Last Admin: 01/12/19 08:22 Dose: 1 spr Gabapentin (Neurontin) 100 mg PO Q8 [facility] Last Admin: 01/12/19 06:59 Dose: Not Given Guaifenesin (Mucinex La) 600 mg PO BID [facility] Last Admin: 01/12/19 09:37 Dose: 600 mg Hydrochlorothiazide (Hydrodiuril) 25 mg PO DAILY [facility] Last Admin: 01/12/19 09:37 Dose: 25 mg Ceftriaxone Sodium 1 gm/ (Sodium Chloride) 100 mls @ 100 mls/hr IVPB Q24H [facility]; Protocol Last Admin: 01/11/19 16:25 Dose: 100 mls/hr Sodium Chloride (Sodium Chloride 0.9%) 1,000 mls @ 80 mls/hr IV .[id number] [facility] Last Admin: 01/12/19 09:42 Dose: 80 mls/hr Ceftriaxone Sodium 1 gm/ (Sodium Chloride) 100 mls @ 100 mls/hr IVPB Q12H [facility]; Protocol Last Admin: 01/12/19 12:49 Dose: 100 mls/hr Azithromycin 500 mg/ Sodium (Chloride) 250 mls @ 250 mls/hr IVPB DAILY [facility]; Protocol Last Admin: 01/12/19 09:38 Dose: 250 mls/hr Losartan Potassium (Cozaar) 100 mg PO DAILY [facility] Last Admin: 01/12/19 09:37 Dose: 100 mg Methylprednisolone (Solu-Medrol) 60 mg IV Q8H [facility] Last Admin: 01/12/19 08:22 Dose: 60 mg Promethazine HCl/Codeine (Phenergan/Codeine Oral Syrup) 5 ml PO Q4 PRN PRN Reason: Cough Last Admin: 01/12/19 12:49 Dose: 5 ml Rosuvastatin Calcium (Crestor) 5 mg PO HS [facility] Last Admin: 01/11/19 21:33 Dose: 5 mg Zolpidem Tartrate (Ambien) 5 mg PO HS PRN PRN Reason: Insomnia Last Admin: 01/11/19 21:33 Dose: 5 mg - Labs Labs: 01/12/19 06:42 01/12/19 06:42 Assessment and Plan (1) COPD exacerbation Status: Acute (2) Hypertension Status: Acute (3) Leukocytosis Status: Acute
--- NOTE | 2019-01-12 23:51 | CP.PCM.PN ---
Subjective - Date & Time of Evaluation Date of Evaluation: 01/12/19 Time of Evaluation: 23:50 - Subjective Subjective: CHIEF COMPLAINTS TODAY : PERSISTENT COUGHING FEEL CONGESTED SINUSES /URT SOB AND WHEEZING ROS. HEENT : N. Resp : No or hemoptysis Cardio : No anginal CP, PND, orthopnea, palpitation GI : No abd.pain, n/v ,diarrhea or GI bleeding . 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 Musculoskel : No joint swelling , Derm : No rash Psych : Normal affect. Ext : No swelling ,calf pain PE. Pt. is alert awake in no distress. V.S As noted in the chart Head ,ear nose,throat and eyes : Normal. Neck : Supple with normal carotids. Lungs: ERIC POOR AIR ENTRY WITH WHEEZE Heart : S1 & S2 normal with S4. No murmur. Abd : Soft non tender with normal bowel sounds. Neuro : Moves all ext. with no localized deficit. Ext : No edema with intact pulses.Non tender calves Derm : No rashes or decubitus ulcer. LABS/RADIOLOGY: REVIEWED. MYCOPLASMA IGM -VE BLOOD CULTURES -VE X TO DATE Objective - Vital Signs/Intake and Output Vital Signs (last 24 hours): Temp Pulse Resp BP Pulse Ox 97.5 F L 75 20 137/66 98 01/12/19 15:00 01/12/19 15:00 01/12/19 15:00 01/12/19 15:00 01/12/19 15:00 - Medications Medications: Current Medications Albuterol/Ipratropium (Duoneb 3 Mg/0.5 Mg (3 Ml) Ud) 3 ml INH RQ4 [facility] Last Admin: 01/12/19 20:47 Dose: 3 ml Enoxaparin Sodium (Lovenox) 40 mg SC DAILY [facility] Last Admin: 01/12/19 09:37 Dose: 40 mg Fluticasone Propionate (Flonase) 0 spr SWATI Q12H [facility] Last Admin: 01/12/19 20:04 Dose: 1 spr Gabapentin (Neurontin) 100 mg PO Q8 [facility] Last Admin: 01/12/19 21:37 Dose: 100 mg Guaifenesin (Mucinex La) 600 mg PO BID [facility] Last Admin: 01/12/19 17:35 Dose: 600 mg Hydrochlorothiazide (Hydrodiuril) 25 mg PO DAILY [facility] Last Admin: 01/12/19 09:37 Dose: 25 mg Ceftriaxone Sodium 1 gm/ (Sodium Chloride) 100 mls @ 100 mls/hr IVPB Q24H [facility]; Protocol Last Admin: 01/12/19 17:36 Dose: 100 mls/hr Sodium Chloride (Sodium Chloride 0.9%) 1,000 mls @ 80 mls/hr IV .[id number] [facility] Last Admin: 01/12/19 09:42 Dose: 80 mls/hr Ceftriaxone Sodium 1 gm/ (Sodium Chloride) 100 mls @ 100 mls/hr IVPB Q12H [facility]; Protocol Last Admin: 01/12/19 12:49 Dose: 100 mls/hr Azithromycin 500 mg/ Sodium (Chloride) 250 mls @ 250 mls/hr IVPB DAILY [facility]; Protocol Last Admin: 01/12/19 09:38 Dose: 250 mls/hr Losartan Potassium (Cozaar) 100 mg PO DAILY [facility] Last Admin: 01/12/19 09:37 Dose: 100 mg Methylprednisolone (Solu-Medrol) 60 mg IV Q8H [facility] Last Admin: 01/12/19 22:52 Dose: 60 mg Promethazine HCl/Codeine (Phenergan/Codeine Oral Syrup) 5 ml PO Q4 PRN PRN Reason: Cough Last Admin: 01/12/19 12:49 Dose: 5 ml Rosuvastatin Calcium (Crestor) 5 mg PO HS [facility] Last Admin: 01/12/19 21:35 Dose: 5 mg Zolpidem Tartrate (Ambien) 5 mg PO HS PRN PRN Reason: Insomnia Last Admin: 01/12/19 21:37 Dose: 5 mg - Labs Labs: 01/12/19 06:42 01/12/19 06:42 Assessment and Plan (1) COPD exacerbation Status: Acute (2) Hyperlipidemia Status: Acute (3) Hypertension Status: Acute - Assessment and Plan (Free Text) Plan: INCREASE iv ROCEPHIN 1 G iv PIGGYBACK EVERY 12 HOURLY 01/11/19. ADD iv ZITHROMAX 500MG IVPB DAILY DAILY 01/12/19. ADD MUCINEX XL 600MG PO BID 01/11/[address] PERTUSS[address] SINUSES W/O CONTRAST R/O ACUTE SINUSITIS -P CONTINUE iv sOLU-mEDROL 60 MG EVERY 8 HOURLY PER PMD PULMONARY TOILET. DROPLET PRECAUTIONS FOR PERTUSSIS CASE DISCUSSED WITH THE STAFF AND PMD
[2019-01-13] MEDS: Albuterol-Ipratrop 3 mg / 0.5 (3 ml) UD INH SCH ×5 (04:42→20:31)
[2019-01-13] MEDS: Sodium Chloride 0.9% 1,000 ML IV SCH (05:32)
[2019-01-13 08:16] LABS: HEMOGLOBIN 13.5 g/dL (11.0-16.0); LYMPH # 0.8 K/uL (1.0-4.3); LYMPH % 5.4 % (20.0-40.0); MEAN CELL VOLUME 82.4 fL (81.0-99.0); MEAN CORPUSCULAR HEMOGLOBIN 27.3 pg (27.0-31.0); MEAN CORPUSCULAR HGB CONC 33.1 g/dL (33.0-37.0); MEAN PLATELET VOLUME 8.3 fL (7.2-11.7); MONO # 0.5 K/uL (0.0-0.8); MONO % 3.4 % (0.0-10.0); NEUT # 13.9 K/uL (1.8-7.0); NEUT % 91.2 % (50.0-75.0); PLATELET COUNT 336 K/uL (130-400); RBC 4.96 Mil/uL (3.80-5.20); RED CELL DISTRIBUTION WIDTH 13.9 % (11.5-14.5); WHITE BLOOD COUNT 15.3 K/uL (4.8-10.8)
[2019-01-13 08:18] LABS: ALB/GLOB RATIO 1.2 (1.0-2.1); ALBUMIN 3.3 g/dL (3.5-5.0); ALT/SGPT 25 U/L (9-52); AST/SGOT 26 U/L (14-36); BLOOD UREA NITROGEN 20 mg/dL (7-17); GFR NON-AFRICAN AMERICAN > 60
[2019-01-13] MEDS: Fluticasone Nasal 50 mcg/Spray NAS SCH ×2 (08:22→21:21)
[2019-01-13] MEDS: MethylPREDNISolone 40 mg Vial IV SCH ×3 (08:23→23:58)
[2019-01-13] MEDS: Azithromycin 500 MG in Sodium Chloride 0.9% 250 ML IVPB SCH (09:21)
[2019-01-13] MEDS: Enoxaparin 40 mg Syringe SC SCH (09:21)
[2019-01-13] MEDS: guaiFENesin 600 mg ER Tab PO SCH ×2 (09:21→17:32)
[2019-01-13 10:15] LABS: BANDS 2 % (0-2); LYMPHOCYTE 6 % (20-40); MONOCYTE 7 % (0-10); NEUTROPHIL 84 % (50-75); OVALOCYTES SLIGHT; PLATELET ESTIMATE NORMAL (NORMAL); REACTIVE LYMPHOCYTES 1 % (0-0); TOTAL CELLS COUNTED 100
--- NOTE | 2019-01-13 11:28 | CT ---
Date of service: 01/12/2019 PROCEDURE: CT SINUSES WITHOUT CONTRAST HISTORY: SOB COMPARISON: None available. TECHNIQUE: Contiguous axial CT images of the paranasal sinuses were obtained. Coronal and sagittal reformats were generated. Radiation dose: Total exam DLP = 738.61 mGy-cm. This CT exam was performed using one or more of the following dose reduction techniques: Automated exposure control, adjustment of the mA and/or kV according to patient size, and/or use of iterative reconstruction technique. FINDINGS: FRONTAL SINUSES: Mucosal thickening and air-fluid levels noted in the frontal sinuses ETHMOID SINUSES: Mucosal thickening and partial opacification of the ethmoid sinuses noted SPHENOID SINUSES: . mucosal thickening and air-fluid level noted with almost complete opacification of the right sphenoid sinus. MAXILLARY SINUSES: Almost complete opacification of the bilateral SINUS DRAINAGE: Maxillary sinuses noted. Opacification of sinuses drainage pathway noted bilaterally. NASAL SEPTUM: No significant deviation. No destructive lesion. MASS: None. SKULL BASE: Unremarkable. TEMPORAL BONES: Middle ears and mastoid grossly unremarkable. OTHER FINDINGS: Findings suggestive of pansinusitis. IMPRESSION: Unremarkable non contrast enhanced CT of the sinuses.
--- NOTE | 2019-01-13 12:25 | CP.PCM.PN ---
Subjective - Date & Time of Evaluation Date of Evaluation: 01/13/19 Time of Evaluation: 12:24 - Subjective Subjective: IMPROVING COUGH WHEEZING CT SINUS NEG CONT IV AB/STEROIDS Objective - Vital Signs/Intake and Output Vital Signs (last 24 hours): Temp Pulse Resp BP Pulse Ox 97.7 F 76 20 138/77 92 L 01/13/19 08:00 01/13/19 10:00 01/13/19 08:00 01/13/19 08:00 01/13/19 08:00 - Medications Medications: Current Medications Albuterol/Ipratropium (Duoneb 3 Mg/0.5 Mg (3 Ml) Ud) 3 ml INH RQ4 [facility] Last Admin: 01/13/19 11:07 Dose: Not Given Enoxaparin Sodium (Lovenox) 40 mg SC DAILY [facility] Last Admin: 01/13/19 09:21 Dose: 40 mg Fluticasone Propionate (Flonase) 0 spr SWATI Q12H [facility] Last Admin: 01/13/19 08:22 Dose: 1 spr Gabapentin (Neurontin) 100 mg PO Q8 [facility] Last Admin: 01/13/19 05:32 Dose: Not Given Guaifenesin (Mucinex La) 600 mg PO BID [facility] Last Admin: 01/13/19 09:21 Dose: 600 mg Hydrochlorothiazide (Hydrodiuril) 25 mg PO DAILY [facility] Last Admin: 01/13/19 09:20 Dose: 25 mg Ceftriaxone Sodium 1 gm/ (Sodium Chloride) 100 mls @ 100 mls/hr IVPB Q24H [facility]; Protocol Last Admin: 01/12/19 17:36 Dose: 100 mls/hr Ceftriaxone Sodium 1 gm/ (Sodium Chloride) 100 mls @ 100 mls/hr IVPB Q12H [facility]; Protocol Last Admin: 01/12/19 23:59 Dose: 100 mls/hr Azithromycin 500 mg/ Sodium (Chloride) 250 mls @ 250 mls/hr IVPB DAILY [facility]; Protocol Last Admin: 01/13/19 09:21 Dose: 250 mls/hr Losartan Potassium (Cozaar) 100 mg PO DAILY [facility] Last Admin: 01/13/19 09:20 Dose: 100 mg Methylprednisolone (Solu-Medrol) 60 mg IV Q8H [facility] Last Admin: 01/13/19 08:23 Dose: 60 mg Promethazine HCl/Codeine (Phenergan/Codeine Oral Syrup) 5 ml PO Q4 PRN PRN Reason: Cough Last Admin: 01/12/19 12:49 Dose: 5 ml Rosuvastatin Calcium (Crestor) 5 mg PO HS [facility] Last Admin: 01/12/19 21:35 Dose: 5 mg Zolpidem Tartrate (Ambien) 5 mg PO HS PRN PRN Reason: Insomnia Last Admin: 01/12/19 21:37 Dose: 5 mg - Labs Labs: 01/13/19 07:50 01/13/19 07:50 Assessment and Plan (1) COPD exacerbation Status: Acute (2) Hypertension Status: Acute (3) Leukocytosis Status: Acute
[2019-01-13] MEDS: Promethazine/Cod 6.25mg-10mg/5ml Syr UD PO PRN (21:22)
--- NOTE | 2019-01-13 21:53 | CARD ---
APPROVED REPORT Date of service: 01/09/2019 EKG Measurement Heart [id number] <Conclusion> Sinus tachycardia Otherwise normal
[2019-01-14] MEDS: Albuterol-Ipratrop 3 mg / 0.5 (3 ml) UD INH SCH ×6 (01:23→20:31)
[2019-01-14] MEDS: Fluticasone Nasal 50 mcg/Spray NAS SCH ×2 (08:46→21:26)
[2019-01-14] MEDS: MethylPREDNISolone 40 mg Vial IV SCH ×3 (08:46→23:32)
[2019-01-14] MEDS: Azithromycin 500 MG in Sodium Chloride 0.9% 250 ML IVPB SCH (10:00)
[2019-01-14] MEDS: guaiFENesin 600 mg ER Tab PO SCH ×2 (10:00→17:27)
[2019-01-14] MEDS: Enoxaparin 40 mg Syringe SC SCH (10:00)
--- NOTE | 2019-01-14 11:34 | CP.PCM.PN ---
Subjective - Date & Time of Evaluation Date of Evaluation: 01/14/19 Time of Evaluation: 11:34 - Subjective Subjective: CHIEF COMPLAINTS TODAY : PERSISTENT COUGHING NOT MUCH EXPECTORATION SOB AND WHEEZING ROS. HEENT : N. Resp : No or hemoptysis Cardio : No anginal CP, PND, orthopnea, palpitation GI : No abd.pain, n/v ,diarrhea or GI bleeding . 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 Musculoskel : No joint swelling , Derm : No rash Psych : Normal affect. Ext : No swelling ,calf pain PE. Pt. is alert awake in no distress. V.S As noted in the chart Head ,ear nose,throat and eyes : Normal. Neck : Supple with normal carotids. Lungs: ERIC POOR AIR ENTRY WITH WHEEZE Heart : S1 & S2 normal with S4. No murmur. Abd : Soft non tender with normal bowel sounds. Neuro : Moves all ext. with no localized deficit. Ext : No edema with intact pulses.Non tender calves Derm : No rashes or decubitus ulcer. LABS/RADIOLOGY: ISOLATION FOR PERTUSSIS ASSESSMENT/PLAN : CONT IV AB AND STEROIDS Objective - Vital Signs/Intake and Output Vital Signs (last 24 hours): Temp Pulse Resp BP Pulse Ox 97.9 F 67 20 138/75 95 01/14/19 08:00 01/14/19 08:00 01/14/19 08:00 01/14/19 08:00 01/14/19 08:00 - Medications Medications: Current Medications Albuterol/Ipratropium (Duoneb 3 Mg/0.5 Mg (3 Ml) Ud) 3 ml INH RQ4 [facility] Last Admin: 01/14/19 07:59 Dose: 3 ml Enoxaparin Sodium (Lovenox) 40 mg SC DAILY [facility] Last Admin: 01/13/19 09:21 Dose: 40 mg Fluticasone Propionate (Flonase) 0 spr SWATI Q12H [facility] Last Admin: 01/14/19 08:46 Dose: 1 spr Gabapentin (Neurontin) 100 mg PO Q8 [facility] Last Admin: 01/14/19 05:12 Dose: Not Given Guaifenesin (Mucinex La) 600 mg PO BID [facility] Last Admin: 01/13/19 17:32 Dose: 600 mg Hydrochlorothiazide (Hydrodiuril) 25 mg PO DAILY [facility] Last Admin: 01/13/19 09:20 Dose: 25 mg Ceftriaxone Sodium 1 gm/ (Sodium Chloride) 100 mls @ 100 mls/hr IVPB Q12H [facility]; Protocol Last Admin: 01/13/19 23:59 Dose: 100 mls/hr Azithromycin 500 mg/ Sodium (Chloride) 250 mls @ 250 mls/hr IVPB DAILY [facility]; Protocol Last Admin: 01/13/19 09:21 Dose: 250 mls/hr Losartan Potassium (Cozaar) 100 mg PO DAILY [facility] Last Admin: 01/13/19 09:20 Dose: 100 mg Methylprednisolone (Solu-Medrol) 60 mg IV Q8H [facility] Last Admin: 01/14/19 08:46 Dose: 60 mg Promethazine HCl/Codeine (Phenergan/Codeine Oral Syrup) 5 ml PO Q4 PRN PRN Reason: Cough Last Admin: 01/13/19 21:22 Dose: 5 ml Rosuvastatin Calcium (Crestor) 5 mg PO HS [facility] Last Admin: 01/13/19 21:22 Dose: 5 mg Zolpidem Tartrate (Ambien) 5 mg PO HS PRN PRN Reason: Insomnia Last Admin: 01/13/19 21:22 Dose: 5 mg - Labs Labs: 01/13/19 07:50 01/13/19 07:50 Assessment and Plan (1) COPD exacerbation Status: Acute (2) Hypertension Status: Acute (3) Leukocytosis Status: Acute
--- NOTE | 2019-01-14 16:32 | CP.PCM.PN ---
Subjective - Date & Time of Evaluation Date of Evaluation: 01/14/19 Time of Evaluation: 16:32 - Subjective Subjective: CHIEF COMPLAINTS TODAY : +VE COUGHING FEEL CONGESTED SINUSES /URT SOB AND WHEEZING ROS. HEENT : N. Resp : No or hemoptysis Cardio : No anginal CP, PND, orthopnea, palpitation GI : No abd.pain, n/v ,diarrhea or GI bleeding . 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 Musculoskel : No joint swelling , Derm : No rash Psych : Normal affect. Ext : No swelling ,calf pain PE. Pt. is alert awake in no distress. V.S As noted in the chart Head ,ear nose,throat and eyes : Normal. Neck : Supple with normal carotids. Lungs: ERIC POOR AIR ENTRY WITH WHEEZE Heart : S1 & S2 normal with S4. No murmur. Abd : Soft non tender with normal bowel sounds. Neuro : Moves all ext. with no localized deficit. Ext : No edema with intact pulses.Non tender calves Derm : No rashes or decubitus ulcer. LABS/RADIOLOGY: CT SINUSES W/O CONTRAST PANSINUSITIS WITH COMPLETE OPACIFICATION OF B/L MAXILLARY SINUSES REVIEWED. MYCOPLASMA IGM -VE BLOOD CULTURES -VE X TO DATE Objective - Vital Signs/Intake and Output Vital Signs (last 24 hours): Temp Pulse Resp BP Pulse Ox 97.9 F 89 20 138/75 95 01/14/19 08:00 01/14/19 10:00 01/14/19 08:00 01/14/19 08:00 01/14/19 16:08 - Medications Medications: Current Medications Albuterol/Ipratropium (Duoneb 3 Mg/0.5 Mg (3 Ml) Ud) 3 ml INH RQ4 [facility] Last Admin: 01/14/19 11:41 Dose: 3 ml Enoxaparin Sodium (Lovenox) 40 mg SC DAILY [facility] Last Admin: 01/14/19 10:00 Dose: 40 mg Fluticasone Propionate (Flonase) 0 spr SWATI Q12H [facility] Last Admin: 01/14/19 08:46 Dose: 1 spr Gabapentin (Neurontin) 100 mg PO Q8 [facility] Last Admin: 01/14/19 14:28 Dose: Not Given Guaifenesin (Mucinex La) 600 mg PO BID [facility] Last Admin: 01/14/19 10:00 Dose: 600 mg Hydrochlorothiazide (Hydrodiuril) 25 mg PO DAILY [facility] Last Admin: 01/14/19 10:00 Dose: 25 mg Ceftriaxone Sodium 1 gm/ (Sodium Chloride) 100 mls @ 100 mls/hr IVPB Q12H [facility]; Protocol Last Admin: 01/14/19 12:30 Dose: 100 mls/hr Azithromycin 500 mg/ Sodium (Chloride) 250 mls @ 250 mls/hr IVPB DAILY [facility]; Protocol Last Admin: 01/14/19 10:00 Dose: 250 mls/hr Losartan Potassium (Cozaar) 100 mg PO DAILY [facility] Last Admin: 01/14/19 10:00 Dose: 100 mg Methylprednisolone (Solu-Medrol) 60 mg IV Q8H [facility] Last Admin: 01/14/19 16:05 Dose: 60 mg Promethazine HCl/Codeine (Phenergan/Codeine Oral Syrup) 5 ml PO Q4 PRN PRN Reason: Cough Last Admin: 01/13/19 21:22 Dose: 5 ml Rosuvastatin Calcium (Crestor) 5 mg PO HS [facility] Last Admin: 01/13/19 21:22 Dose: 5 mg Zolpidem Tartrate (Ambien) 5 mg PO HS PRN PRN Reason: Insomnia Last Admin: 01/13/19 21:22 Dose: 5 mg - Labs Labs: 01/13/19 07:50 01/13/19 07:50 Assessment and Plan (1) Pansinusitis Status: Acute (2) COPD exacerbation Status: Acute (3) Hyperlipidemia Status: Acute (4) Hypertension Status: Acute - Assessment and Plan (Free Text) Plan: CONTINUE iv ROCEPHIN 1 G iv PIGGYBACK EVERY 12 HOURLY 01/11/19. ADD iv ZITHROMAX 500MG IVPB DAILY DAILY 01/12/19. ADD MUCINEX XL 600MG PO BID 01/11/[address] PERT[address] SINUSES NOTED . ENT EVALUATION CONTINUE iv sOLU-mEDROL 60 MG EVERY 8 HOURLY PER PMD PULMONARY TOILET. DROPLET PRECAUTIONS FOR PERTUSSIS CASE DISCUSSED WITH THE STAFF AND PMD
[2019-01-15] MEDS: Albuterol-Ipratrop 3 mg / 0.5 (3 ml) UD INH SCH ×6 (00:27→19:11)
[2019-01-15] MEDS: MethylPREDNISolone 40 mg Vial IV SCH ×3 (06:47→23:23)
[2019-01-15 08:21] LABS: BASO % 0.1 % (0.0-2.0); HEMOGLOBIN 13.3 g/dL (11.0-16.0); LYMPH # 0.6 K/uL (1.0-4.3); LYMPH % 4.3 % (20.0-40.0); MEAN CELL VOLUME 82.9 fL (81.0-99.0); MEAN CORPUSCULAR HEMOGLOBIN 27.4 pg (27.0-31.0); MEAN CORPUSCULAR HGB CONC 33.1 g/dL (33.0-37.0); MEAN PLATELET VOLUME 8.2 fL (7.2-11.7); MONO # 0.4 K/uL (0.0-0.8); MONO % 3.1 % (0.0-10.0); NEUT # 12.3 K/uL (1.8-7.0); NEUT % 92.5 % (50.0-75.0); PLATELET COUNT 322 K/uL (130-400); RBC 4.84 Mil/uL (3.80-5.20); RED CELL DISTRIBUTION WIDTH 13.9 % (11.5-14.5); WHITE BLOOD COUNT 13.3 K/uL (4.8-10.8)
[2019-01-15 08:32] LABS: ALB/GLOB RATIO 1.3 (1.0-2.1); ALBUMIN 3.1 g/dL (3.5-5.0); ALT/SGPT 23 U/L (9-52); AST/SGOT 23 U/L (14-36); BLOOD UREA NITROGEN 22 mg/dL (7-17); CALCIUM 10.3 mg/dl (8.6-10.4); GFR NON-AFRICAN AMERICAN > 60
[2019-01-15] MEDS: Fluticasone Nasal 50 mcg/Spray NAS SCH ×2 (08:47→20:15)
[2019-01-15 09:25] LABS: LYMPHOCYTE 2 % (20-40); MONOCYTE 3 % (0-10); NEUTROPHIL 95 % (50-75); TOTAL CELLS COUNTED 100
[2019-01-15 09:26] LABS: PLATELET ESTIMATE NORMAL (NORMAL)
[2019-01-15] MEDS: Azithromycin 500 MG in Sodium Chloride 0.9% 250 ML IVPB SCH (10:23)
[2019-01-15] MEDS: guaiFENesin 600 mg ER Tab PO SCH ×2 (10:26→17:49)
[2019-01-15] MEDS: Enoxaparin 40 mg Syringe SC SCH (10:26)
--- NOTE | 2019-01-15 12:16 | CP.PCM.PN ---
Subjective - Date & Time of Evaluation Date of Evaluation: 01/15/19 Time of Evaluation: 12:16 - Subjective Subjective: CHIEF COMPLAINTS TODAY : PERSISTENT COUGHING NOT MUCH EXPECTORATION SOB AND WHEEZING ROS. HEENT : N. Resp : No or hemoptysis Cardio : No anginal CP, PND, orthopnea, palpitation GI : No abd.pain, n/v ,diarrhea or GI bleeding . GI PHYSICIAN : No headache, vertigo, focal deficit. Musculoskel : No joint swelling , Derm : No rash Psych : Normal affect. Ext : No swelling ,calf pain PE. Pt. is alert awake in no distress. V.S As noted in the chart Head ,ear nose,throat and eyes : Normal. Neck : Supple with normal carotids. Lungs: ERIC POOR AIR ENTRY WITH WHEEZE Heart : S1 & S2 normal with S4. No murmur. Abd : Soft non tender with normal bowel sounds. Neuro : Moves all ext. with no localized deficit. Ext : No edema with intact pulses.Non tender calves Derm : No rashes or decubitus ulcer. LABS/RADIOLOGY: ISOLATION FOR PERTUSSIS ASSESSMENT/PLAN : CONT IV AB AND STEROIDS Objective - Vital Signs/Intake and Output Vital Signs (last 24 hours): Temp Pulse Resp BP Pulse Ox 97.9 F 60 18 127/74 98 01/15/19 07:00 01/15/19 07:00 01/15/19 07:00 01/15/19 07:00 01/15/19 07:00 - Medications Medications: Current Medications Albuterol/Ipratropium (Duoneb 3 Mg/0.5 Mg (3 Ml) Ud) 3 ml INH RQ4 [facility] Last Admin: 01/15/19 11:15 Dose: 3 ml Enoxaparin Sodium (Lovenox) 40 mg SC DAILY [facility] Last Admin: 01/15/19 10:26 Dose: 40 mg Fluticasone Propionate (Flonase) 0 spr SWATI Q12H [facility] Last Admin: 01/15/19 08:47 Dose: 1 spr Gabapentin (Neurontin) 100 mg PO Q8 [facility] Last Admin: 01/15/19 05:23 Dose: 100 mg Guaifenesin (Mucinex La) 600 mg PO BID [facility] Last Admin: 01/15/19 10:26 Dose: 600 mg Hydrochlorothiazide (Hydrodiuril) 25 mg PO DAILY [facility] Last Admin: 01/15/19 10:25 Dose: 25 mg Ceftriaxone Sodium 1 gm/ (Sodium Chloride) 100 mls @ 100 mls/hr IVPB Q12H [facility]; Protocol Last Admin: 01/15/19 11:31 Dose: 100 mls/hr Azithromycin 500 mg/ Sodium (Chloride) 250 mls @ 250 mls/hr IVPB DAILY [facility]; Protocol Last Admin: 01/15/19 10:23 Dose: 250 mls/hr Losartan Potassium (Cozaar) 100 mg PO DAILY [facility] Last Admin: 01/15/19 10:26 Dose: 100 mg Methylprednisolone (Solu-Medrol) 60 mg IV Q8H [facility] Last Admin: 01/15/19 06:47 Dose: 60 mg Promethazine HCl/Codeine (Phenergan/Codeine Oral Syrup) 5 ml PO Q4 PRN PRN Reason: Cough Last Admin: 01/13/19 21:22 Dose: 5 ml Rosuvastatin Calcium (Crestor) 5 mg PO HS [facility] Last Admin: 01/14/19 21:27 Dose: 5 mg Zolpidem Tartrate (Ambien) 5 mg PO HS PRN PRN Reason: Insomnia Last Admin: 01/14/19 21:30 Dose: 5 mg - Labs Labs: 01/15/19 07:58 01/15/19 07:58 Assessment and Plan (1) COPD exacerbation Status: Acute (2) Hypertension Status: Acute (3) Leukocytosis Status: Acute
--- NOTE | 2019-01-15 14:37 | CP.PCM.PN ---
Subjective - Date & Time of Evaluation Date of Evaluation: 01/15/19 Time of Evaluation: 14:37 - Subjective Subjective: CHIEF COMPLAINTS TODAY : afebrile still coughing FEEL CONGESTED SINUSES /URT c/o pain right lower extremity ROS. HEENT : N. Resp : No or hemoptysis Cardio : No anginal CP, PND, orthopnea, palpitation GI : No abd.pain, n/v ,diarrhea or GI bleeding . 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 Musculoskel : No joint swelling , Derm : No rash Psych : Normal affect. Ext : b/l swelling /edema LE, +VE RT calf pain PE. Pt. is alert awake in no distress. V.S As noted in the chart Head ,ear nose,throat and eyes : Normal. Neck : Supple with normal carotids. Lungs: ERIC POOR AIR ENTRY WITH WHEEZE Heart : S1 & S2 normal with S4. No murmur. Abd : Soft non tender with normal bowel sounds. Neuro : Moves all ext. with no localized deficit. Ext : B/L EDEMA LE 2+, RT LE CALF TENDERNESS , +VE intact pulses. Derm : No rashes or decubitus ulcer. LABS/RADIOLOGY: CT SINUSES W/O CONTRAST PANSINUSITIS WITH COMPLETE OPACIFICATION OF B/L MAXILLARY SINUSES REVIEWED. MYCOPLASMA IGM -VE BLOOD CULTURES -VE X TO DATE Objective - Vital Signs/Intake and Output Vital Signs (last 24 hours): Temp Pulse Resp BP Pulse Ox 97.9 F 60 18 127/74 98 01/15/19 07:00 01/15/19 07:00 01/15/19 07:00 01/15/19 07:00 01/15/19 07:00 - Medications Medications: Current Medications Albuterol/Ipratropium (Duoneb 3 Mg/0.5 Mg (3 Ml) Ud) 3 ml INH RQ4 [facility] Last Admin: 01/15/19 11:15 Dose: 3 ml Enoxaparin Sodium (Lovenox) 40 mg SC DAILY [facility] Last Admin: 01/15/19 10:26 Dose: 40 mg Fluticasone Propionate (Flonase) 0 spr SWATI Q12H [facility] Last Admin: 01/15/19 08:47 Dose: 1 spr Gabapentin (Neurontin) 100 mg PO Q8 [facility] Last Admin: 01/15/19 05:23 Dose: 100 mg Guaifenesin (Mucinex La) 600 mg PO BID [facility] Last Admin: 01/15/19 10:26 Dose: 600 mg Hydrochlorothiazide (Hydrodiuril) 25 mg PO DAILY [facility] Last Admin: 01/15/19 10:25 Dose: 25 mg Ceftriaxone Sodium 1 gm/ (Sodium Chloride) 100 mls @ 100 mls/hr IVPB Q12H [facility]; Protocol Last Admin: 01/15/19 11:31 Dose: 100 mls/hr Azithromycin 500 mg/ Sodium (Chloride) 250 mls @ 250 mls/hr IVPB DAILY [facility]; Protocol Last Admin: 01/15/19 10:23 Dose: 250 mls/hr Losartan Potassium (Cozaar) 100 mg PO DAILY [facility] Last Admin: 01/15/19 10:26 Dose: 100 mg Methylprednisolone (Solu-Medrol) 60 mg IV Q8H [facility] Last Admin: 01/15/19 06:47 Dose: 60 mg Promethazine HCl/Codeine (Phenergan/Codeine Oral Syrup) 5 ml PO Q4 PRN PRN Reason: Cough Last Admin: 01/13/19 21:22 Dose: 5 ml Rosuvastatin Calcium (Crestor) 5 mg PO HS [facility] Last Admin: 01/14/19 21:27 Dose: 5 mg Zolpidem Tartrate (Ambien) 5 mg PO HS PRN PRN Reason: Insomnia Last Admin: 01/14/19 21:30 Dose: 5 mg - Labs Labs: 01/15/19 07:58 01/15/19 07:58 Assessment and Plan (1) Pansinusitis Status: Acute (2) COPD exacerbation Status: Acute (3) Hyperlipidemia Status: Acute (4) Hypertension Status: Acute - Assessment and Plan (Free Text) Plan: CONTINUE iv ROCEPHIN 1 G iv PIGGYBACK EVERY 12 HOURLY 01/11/19. ADD iv ZITHROMAX 500MG IVPB DAILY DAILY 01/12/19. ADD MUCINEX XL 600MG PO BID 01/11/19 ATYPICAL TITRES. PERTUSSIS AB venous duplex right lower extremity r/o DVT. D. DIMER IN AM. CONTINUE lOVENOX PER PMD. CONTINUE iv SOLU-mEDROL 60 MG EVERY 8 HOURLY PER PMD PULMONARY TOILET. DROPLET PRECAUTIONS FOR PERTUSSIS. PATIENT WILL NEED dtAp BEFORE DISCHARGE. CASE DISCUSSED WITH pmd/sTAFF.
[2019-01-15] MEDS: Promethazine/Cod 6.25mg-10mg/5ml Syr UD PO PRN ×2 (17:50→21:14)
[2019-01-16] MEDS: Albuterol-Ipratrop 3 mg / 0.5 (3 ml) UD INH SCH ×6 (01:04→21:29)
[2019-01-16] MEDS: MethylPREDNISolone 40 mg Vial IV SCH ×3 (06:48→23:17)
[2019-01-16] MEDS: Fluticasone Nasal 50 mcg/Spray NAS SCH ×2 (08:00→19:36)
[2019-01-16] MEDS: Enoxaparin 40 mg Syringe SC SCH (10:30)
[2019-01-16] MEDS: Azithromycin 500 MG in Sodium Chloride 0.9% 250 ML IVPB SCH (10:30)
[2019-01-16] MEDS: guaiFENesin 600 mg ER Tab PO SCH ×2 (10:31→17:31)
--- NOTE | 2019-01-16 12:04 | CP.PCM.PN ---
Subjective - Date & Time of Evaluation Date of Evaluation: 01/16/19 Time of Evaluation: 12:04 - Subjective Subjective: CHIEF COMPLAINTS TODAY : PERSISTENT COUGHING NOT MUCH EXPECTORATION SOB AND WHEEZING ROS. HEENT : N. Resp : No or hemoptysis Cardio : No anginal CP, PND, orthopnea, palpitation GI : No abd.pain, n/v ,diarrhea or GI bleeding . ACUTE CARE NURSE : No headache, vertigo, focal deficit. Musculoskel : No joint swelling , Derm : No rash Psych : Normal affect. Ext : No swelling ,calf pain PE. Pt. is alert awake in no distress. V.S As noted in the chart Head ,ear nose,throat and eyes : Normal. Neck : Supple with normal carotids. Lungs: ERIC POOR AIR ENTRY WITH WHEEZE Heart : S1 & S2 normal with S4. No murmur. Abd : Soft non tender with normal bowel sounds. Neuro : Moves all ext. with no localized deficit. Ext : No edema with intact pulses.Non tender calves Derm : No rashes or decubitus ulcer. LABS/RADIOLOGY: ISOLATION FOR PERTUSSIS ASSESSMENT/PLAN : CONT IV AB AND STEROIDS Objective - Vital Signs/Intake and Output Vital Signs (last 24 hours): Temp Pulse Resp BP Pulse Ox 98.5 F 68 20 129/79 95 01/16/19 07:00 01/16/19 08:44 01/16/19 07:00 01/16/19 07:00 01/16/19 07:00 - Medications Medications: Current Medications Albuterol/Ipratropium (Duoneb 3 Mg/0.5 Mg (3 Ml) Ud) 3 ml INH RQ4 [facility] Last Admin: 01/16/19 11:03 Dose: 3 ml Enoxaparin Sodium (Lovenox) 40 mg SC DAILY [facility] Last Admin: 01/16/19 10:30 Dose: 40 mg Fluticasone Propionate (Flonase) 0 spr SWATI Q12H [facility] Last Admin: 01/16/19 08:00 Dose: 1 spr Gabapentin (Neurontin) 100 mg PO Q8 [facility] Last Admin: 01/16/19 06:49 Dose: Not Given Guaifenesin (Mucinex La) 600 mg PO BID [facility] Last Admin: 01/16/19 10:31 Dose: 600 mg Hydrochlorothiazide (Hydrodiuril) 25 mg PO DAILY [facility] Last Admin: 01/16/19 10:30 Dose: 25 mg Ceftriaxone Sodium 1 gm/ (Sodium Chloride) 100 mls @ 100 mls/hr IVPB Q12H [facility]; Protocol Last Admin: 01/16/19 00:03 Dose: 100 mls/hr Azithromycin 500 mg/ Sodium (Chloride) 250 mls @ 250 mls/hr IVPB DAILY [facility]; Protocol Last Admin: 01/15/19 10:23 Dose: 250 mls/hr Losartan Potassium (Cozaar) 100 mg PO DAILY [facility] Last Admin: 01/16/19 10:30 Dose: 100 mg Methylprednisolone (Solu-Medrol) 60 mg IV Q8H [facility] Last Admin: 01/16/19 06:48 Dose: 60 mg Promethazine HCl/Codeine (Phenergan/Codeine Oral Syrup) 5 ml PO Q4 PRN PRN Reason: Cough Last Admin: 01/15/19 21:14 Dose: 5 ml Rosuvastatin Calcium (Crestor) 5 mg PO HS [facility] Last Admin: 01/15/19 21:14 Dose: 5 mg Zolpidem Tartrate (Ambien) 5 mg PO HS PRN PRN Reason: Insomnia Last Admin: 01/15/19 21:14 Dose: 5 mg - Labs Labs: 01/15/19 07:58 01/15/19 07:58 Assessment and Plan (1) COPD exacerbation Status: Acute (2) Hypertension Status: Acute (3) Leukocytosis Status: Acute
--- NOTE | 2019-01-16 16:19 | CP.PCM.PN ---
Subjective - Date & Time of Evaluation Date of Evaluation: 01/16/19 Time of Evaluation: 16:19 - Subjective Subjective: CHIEF COMPLAINTS TODAY : afebrile still coughing FEEL CONGESTED SINUSES /URT B/L LE EDEMA c/o pain right lower extremity BUT DUPLEX VENOUS -VE DVT. SEEN BY PULMONARY 01/16/19 AND NOTED ROS. HEENT : N. Resp : No or hemoptysis Cardio : No anginal CP, PND, orthopnea, palpitation GI : No abd.pain, n/v ,diarrhea or GI bleeding . 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 Musculoskel : No joint swelling , Derm : No rash Psych : Normal affect. Ext : b/l swelling /edema LE, +VE RT calf pain PE. Pt. is alert awake in no distress. V.S As noted in the chart Head ,ear nose,throat and eyes : Normal. Neck : Supple with normal carotids. Lungs: ERIC POOR AIR ENTRY WITH WHEEZE Heart : S1 & S2 normal with S4. No murmur. Abd : Soft non tender with normal bowel sounds. Neuro : Moves all ext. with no localized deficit. Ext : B/L EDEMA LE 2+, RT LE CALF TENDERNESS , +VE intact pulses. Derm : No rashes or decubitus ulcer. LABS/RADIOLOGY: CT SINUSES W/O CONTRAST PANSINUSITIS WITH COMPLETE OPACIFICATION OF B/L MAXILLARY SINUSES REVIEWED. MYCOPLASMA IGM -VE BLOOD CULTURES -VE X TO DATE Objective - Vital Signs/Intake and Output Vital Signs (last 24 hours): Temp Pulse Resp BP Pulse Ox 98.1 F 90 20 148/61 94 L 01/16/19 16:00 01/16/19 16:00 01/16/19 16:00 01/16/19 16:00 01/16/19 16:00 - Medications Medications: Current Medications Albuterol/Ipratropium (Duoneb 3 Mg/0.5 Mg (3 Ml) Ud) 3 ml INH RQ4 [facility] Last Admin: 01/16/19 11:03 Dose: 3 ml Enoxaparin Sodium (Lovenox) 40 mg SC DAILY [facility] Last Admin: 01/16/19 10:30 Dose: 40 mg Fluticasone Propionate (Flonase) 0 spr SWATI Q12H [facility] Last Admin: 01/16/19 08:00 Dose: 1 spr Furosemide (Lasix) 40 mg IVP DAILY [facility] Last Admin: 01/16/19 13:46 Dose: 40 mg Gabapentin (Neurontin) 100 mg PO Q8 [facility] Last Admin: 01/16/19 13:47 Dose: Not Given Guaifenesin (Mucinex La) 600 mg PO BID [facility] Last Admin: 01/16/19 10:31 Dose: 600 mg Hydrochlorothiazide (Hydrodiuril) 25 mg PO DAILY [facility] Last Admin: 01/16/19 10:30 Dose: 25 mg Ceftriaxone Sodium 1 gm/ (Sodium Chloride) 100 mls @ 100 mls/hr IVPB Q12H [facility]; Protocol Last Admin: 01/16/19 12:11 Dose: 100 mls/hr Azithromycin 500 mg/ Sodium (Chloride) 250 mls @ 250 mls/hr IVPB DAILY [facility]; Protocol Last Admin: 01/16/19 10:30 Dose: 250 mls/hr Losartan Potassium (Cozaar) 100 mg PO DAILY [facility] Last Admin: 01/16/19 10:30 Dose: 100 mg Methylprednisolone (Solu-Medrol) 60 mg IV Q8H [facility] Last Admin: 01/16/19 15:05 Dose: 60 mg Promethazine HCl/Codeine (Phenergan/Codeine Oral Syrup) 5 ml PO Q4 PRN PRN Reason: Cough Last Admin: 01/15/19 21:14 Dose: 5 ml Rosuvastatin Calcium (Crestor) 5 mg PO HS [facility] Last Admin: 01/15/19 21:14 Dose: 5 mg Zolpidem Tartrate (Ambien) 5 mg PO HS PRN PRN Reason: Insomnia Last Admin: 01/15/19 21:14 Dose: 5 mg - Labs Labs: 01/15/19 07:58 01/15/19 07:58 Assessment and Plan (1) COPD exacerbation Status: Acute (2) Hyperlipidemia Status: Acute (3) Hypertension Status: Acute - Assessment and Plan (Free Text) Plan: CONTINUE iv ROCEPHIN 1 G iv PIGGYBACK EVERY 12 HOURLY 01/11/19. ON iv ZITHROMAX 500MG IVPB DAILY DAILY 01/12/19. ON MUCINEX XL 600MG PO BID 01/11/19 ATYPICAL TITRES-P. PERTUSSIS AB-P STARTED ON LASIX PER PMD DECREASE iv SOLU-mEDROL 60 MG EVERY 8 HOURLY PER PMD PULMONARY TOILET. DROPLET PRECAUTIONS FOR PERTUSSIS. ENT EVALUATION FOR PANSINUSITUS RECOMMENDED BY PULMONARY. ISIAH PER PULMONARY W/U CASE DISCUSSED WITH pmd/sTAFF.
--- NOTE | 2019-01-16 17:23 | CP.PCM.CON ---
History of Present Illness - History of Present Illness History of Present Illness: 68 year old female with past medical history of COPD, Sleep apnea, hypertension who has been hospitalized since 01/09/19 with COPD exacerbation. Patient states she was hospitalized at [facility] in [place] a couple weeks ago for COPD e xacerbation. She was treated with steroids and nebulizers and discharged 2 days after. Her shortness of breath and coughing persisted which caused her to come to the ED. On gathering history patient states she uses symbicort at home twice daily and rarely uses her rescue inhaler. However, she does wake up with nocturnal shortness of breath multiple times per week. She denies smoking, asthma as a child, environmental exposures to irritants, pets or carpeting at home that could insight these SOB spells. While in hospital, patient had transient swelling of right lower extremity and bilateral upper extremities. Dopler was done which came back negative for DVT. Patient was started on lasix. On current hospitalization patient has had an echocardiogram and chest xray which were unremarkable. She had a sinus CT done which showed mucosal thickening and opacification of multiple sinuses. ROS: Patient admits to SOB, cough, leg and arm swelling All other systems reviewed and negative PE: HEENT: Atraumatic, normocephalic, moist mucous membranes, normal neck inspection Respiratory: crackles in left lower lobe otherwise normal lung sounds Cardiovascular: regular rate and rhythm GI/abdominal: normoactive bowel sounds Extremities: nonpitting pedal edema bilaterally and mild swelling of hands and wrists noted bilaterally Neurologic: alert Review of Systems - Review of Systems All systems: reviewed and no additional remarkable complaints except (Postnasal drip, nasal obstruction, hoarseness and shortness of breath) Past Patient History - Infectious Disease Hx of Infectious Diseases: None - Past Medical History & Family History Past Medical History?: Yes - Past Social History Smoking Status: Never Smoked - CARDIAC Hx Cardiac Disorders: Yes Hx Congestive Heart Failure: No Hx Hypercholesterolemia: Yes Hx Hypertension: Yes - PULMONARY Hx Respiratory Disorders: Yes Hx Chronic Obstructive Pulmonary Disease (COPD): Yes (Emphysema) - NEUROLOGICAL Hx Neurological Disorder: Yes Hx Vertigo: Yes - HEENT Hx HEENT Problems: No - RENAL Hx Chronic Kidney Disease: No Hx Kidney Stones: Yes - ENDOCRINE/METABOLIC Hx Endocrine Disorders: No Hx Hypothyroidism: No - HEMATOLOGICAL/ONCOLOGICAL Hx Blood Disorders: No - INTEGUMENTARY Hx Dermatological Problems: No Other/Comment: Lump and mole removed from the back. - MUSCULOSKELETAL/RHEUMATOLOGICAL Hx Musculoskeletal Disorders: Yes Hx Arthritis: No Hx Falls: Yes Hx Rheumatoid Arthritis: No - GASTROINTESTINAL Hx Gastrointestinal Disorders: No - GENITOURINARY/GYNECOLOGICAL Hx Genitourinary Disorders: No Other/Comment: Hysterectomy. - PSYCHIATRIC Hx Substance Use: No - SURGICAL HISTORY Hx Surgeries: Yes Hx Cholecystectomy: Yes - ANESTHESIA Hx Anesthesia: Yes Hx Anesthesia Reactions: No Hx Malignant Hyperthermia: No Has any member of the family had a problem w/ anesthesia?: No Meds Allergies/Adverse Reactions: Allergies Allergy/AdvReac Type Severity Reaction Status Date / Time dexamethasone Allergy RASH Verified 07/31/18 12:45 - Medications Medications: Current Medications Albuterol/Ipratropium (Duoneb 3 Mg/0.5 Mg (3 Ml) Ud) 3 ml INH RQ4 [facility] Last Admin: 01/16/19 11:03 Dose: 3 ml Enoxaparin Sodium (Lovenox) 40 mg SC DAILY [facility] Last Admin: 01/16/19 10:30 Dose: 40 mg Fluticasone Propionate (Flonase) 0 spr SWATI Q12H [facility] Last Admin: 01/16/19 08:00 Dose: 1 spr Furosemide (Lasix) 40 mg IVP DAILY [facility] Last Admin: 01/16/19 13:46 Dose: 40 mg Gabapentin (Neurontin) 100 mg PO Q8 [facility] Last Admin: 01/16/19 13:47 Dose: Not Given Guaifenesin (Mucinex La) 600 mg PO BID [facility] Last Admin: 01/16/19 10:31 Dose: 600 mg Hydrochlorothiazide (Hydrodiuril) 25 mg PO DAILY [facility] Last Admin: 01/16/19 10:30 Dose: 25 mg Ceftriaxone Sodium 1 gm/ (Sodium Chloride) 100 mls @ 100 mls/hr IVPB Q12H [facility]; Protocol Last Admin: 01/16/19 12:11 Dose: 100 mls/hr Azithromycin 500 mg/ Sodium (Chloride) 250 mls @ 250 mls/hr IVPB DAILY [facility]; Protocol Last Admin: 01/16/19 10:30 Dose: 250 mls/hr Losartan Potassium (Cozaar) 100 mg PO DAILY [facility] Last Admin: 01/16/19 10:30 Dose: 100 mg Methylprednisolone (Solu-Medrol) 60 mg IV Q8H [facility] Last Admin: 01/16/19 15:05 Dose: 60 mg Promethazine HCl/Codeine (Phenergan/Codeine Oral Syrup) 5 ml PO Q4 PRN PRN Reason: Cough Last Admin: 01/15/19 21:14 Dose: 5 ml Rosuvastatin Calcium (Crestor) 5 mg PO HS [facility] Last Admin: 01/15/19 21:14 Dose: 5 mg Zolpidem Tartrate (Ambien) 5 mg PO HS PRN PRN Reason: Insomnia Last Admin: 01/15/19 21:14 Dose: 5 mg Physical Exam - Head Exam Head Exam: ATRAUMATIC, NORMOCEPHALIC - ENT Exam ENT Exam: Mucous Membranes Moist - Neck Exam Neck exam: Positive for: Normal Inspection - Respiratory Exam Respiratory Exam: Clear to Auscultation Bilateral - Cardiovascular Exam Cardiovascular Exam: REGULAR RHYTHM - GI/Abdominal Exam GI & Abdominal Exam: Normal Bowel Sounds, Soft - Extremities Exam Extremities exam: Positive for: normal inspection - Neurological Exam Neurological exam: Alert, Oriented x3 Results - Vital Signs Recent Vital Signs: Last Vital Signs Temp 98.1 F 01/16/19 16:00 Pulse 90 01/16/19 16:00 Resp 20 01/16/19 16:00 BP 148/61 01/16/19 16:00 Pulse Ox 94 L 01/16/19 16:00 - Labs Result Diagrams: 01/15/19 07:58 01/15/19 07:58 Labs: Laboratory Results - last 24 hr 01/16/19 07:50 D-Dimer, Quantitative 240 Assessment & Plan (1) COPD exacerbation Status: Acute Comment: Continue current regimen of nebulizers and steriods. Continue azithromycin and ceftriaxone treatment awaiting pertussis reports. (2) Pansinusitis Status: Acute Comment: Continue IV antibiotics and mucolytic's. ENT evaluation possible drainage. Upper airway cough syndrome secondary to postnasal drip (3) ISIAH and COPD overlap syndrome Status: Acute
--- NOTE | 2019-01-16 18:59 | VASCLAB ---
Date of service: 01/16/2019 PROCEDURE: Right Lower Extremity Venous Duplex Exam. HISTORY: Leg pain PRIORS: None. TECHNIQUE: Right common femoral, femoral, popliteal and posterior tibial, peroneal and great saphenous veins were evaluated. Flow was assessed with color Doppler, compressibility, assessment of phasic flow and augmentation response. Report prepared by MARVIN Calix, RVT FINDINGS: RIGHT: 1. Common Femoral Vein: 1.1. Compressibility - Fully compressible: Thrombus - None: Flow - Phasic: Augmentation -Normal: Reflux - None. 2. Femoral Vein: 2.1. Compressibility - Fully compressible: Thrombus - None: Flow - Phasic: Augmentation -Normal: Reflux - None. 3. Popliteal Vein: 3.1. Compressibility - Fully compressible: Thrombus - None: Flow - Phasic: Augmentation -Normal: Reflux - None. 4. Posterior Tibial Vein: 4.1. Compressibility - Fully compressible: Thrombus - None: Flow - Phasic: Augmentation -Normal: Reflux - None. 5. Peroneal Vein: 5.1. Compressibility - Fully compressible: Thrombus - None: Flow - Phasic: Augmentation -Normal: Reflux - None. 6. Great Saphenous Vein: 6.1. Compressibility - Fully compressible: Thrombus -None: Flow - Phasic: Augmentation - Normal: Reflux - None. OTHER FINDINGS: Normal venous flow noted in the left common femoral vein. IMPRESSION: No evidence of deep or superficial vein thrombosis of the right lower extremity with excellent venous flow. Normal valve function noted of the right side.
[2019-01-16] MEDS: Promethazine/Cod 6.25mg-10mg/5ml Syr UD PO PRN (21:20)
[2019-01-17] MEDS: Albuterol-Ipratrop 3 mg / 0.5 (3 ml) UD INH SCH ×7 (00:52→23:54)
[2019-01-17] MEDS: MethylPREDNISolone 40 mg Vial IV SCH ×2 (06:47→15:00)
[2019-01-17] MEDS: Fluticasone Nasal 50 mcg/Spray NAS SCH ×2 (08:35→19:44)
[2019-01-17] MEDS: guaiFENesin 600 mg ER Tab PO SCH ×2 (10:26→17:35)
[2019-01-17] MEDS: Enoxaparin 40 mg Syringe SC SCH (10:27)
[2019-01-17] MEDS: Azithromycin 500 MG in Sodium Chloride 0.9% 250 ML IVPB SCH (10:27)
--- NOTE | 2019-01-17 11:58 | CP.PCM.PN ---
Subjective - Date & Time of Evaluation Date of Evaluation: 01/17/19 Time of Evaluation: 08:45 - Subjective Subjective: Patient seen at bedside. Afebrile. 97% O2 saturation on room air. Improved from yesterday. Still complains of productive cough and shortness of breath. She remains fatigued and finds it difficult to sleep requiring zolpidem. States her ears feel like they are under water. Still feels the sinus pressure. States her leg swelling as decreased. ROS: Patient admits to cough, sinus pressure, dry throat, mild extremity swell All other systems reviewed and negative PE: HEENT: Atraumatic, normocephalic, moist mucous membranes, normal neck inspection Respiratory: Lungs clear to auscultation bilaterally, coughing Cardiovascular: regular rate and rhythm GI/abdominal: normoactive bowel sounds Extremities: no pedal edema Neurologic: alert Assesment/Plan 1. COPD exacerbation. Continue current regimen of nebulizers and steriods. Continue azithromycin and ceftriaxone while we await pertussis reports. 2. Pansinusitis. Continue IV antibiotics and mucolytic's. ENT evaluation for possible drainage. Upper airway cough syndrome to postnasal drip. 3. ISIAH and COPD overlap syndrome. Objective - Vital Signs/Intake and Output Vital Signs (last 24 hours): Temp Pulse Resp BP Pulse Ox 98 F 97 H 20 128/68 97 01/17/19 07:59 01/17/19 07:59 01/17/19 07:59 01/17/19 10:27 01/17/19 07:59 Intake and Output: 01/17/19 01/17/19 06:59 18:59 Intake Total 240 Balance 240 - Medications Medications: Current Medications Albuterol/Ipratropium (Duoneb 3 Mg/0.5 Mg (3 Ml) Ud) 3 ml INH RQ4 [facility] Last Admin: 01/17/19 08:31 Dose: 3 ml Enoxaparin Sodium (Lovenox) 40 mg SC DAILY [facility] Last Admin: 01/17/19 10:27 Dose: 40 mg Fluticasone Propionate (Flonase) 0 spr SWATI Q12H [facility] Last Admin: 01/17/19 08:35 Dose: 1 spr Furosemide (Lasix) 40 mg IVP DAILY [facility] Last Admin: 01/17/19 10:27 Dose: 40 mg Gabapentin (Neurontin) 100 mg PO Q8 [facility] Last Admin: 01/17/19 07:38 Dose: Not Given Guaifenesin (Mucinex La) 600 mg PO BID [facility] Last Admin: 01/17/19 10:26 Dose: 600 mg Hydrochlorothiazide (Hydrodiuril) 25 mg PO DAILY [facility] Last Admin: 01/17/19 10:26 Dose: 25 mg Ceftriaxone Sodium 1 gm/ (Sodium Chloride) 100 mls @ 100 mls/hr IVPB Q12H [facility]; Protocol Last Admin: 01/16/19 23:32 Dose: 100 mls/hr Azithromycin 500 mg/ Sodium (Chloride) 250 mls @ 250 mls/hr IVPB DAILY [facility]; Protocol Last Admin: 01/17/19 10:27 Dose: 250 mls/hr Losartan Potassium (Cozaar) 100 mg PO DAILY [facility] Last Admin: 01/17/19 10:26 Dose: 100 mg Methylprednisolone (Solu-Medrol) 60 mg IV Q8H [facility] Last Admin: 01/17/19 06:47 Dose: 60 mg Promethazine HCl/Codeine (Phenergan/Codeine Oral Syrup) 5 ml PO Q4 PRN PRN Reason: Cough Last Admin: 01/16/19 21:20 Dose: 5 ml Rosuvastatin Calcium (Crestor) 5 mg PO HS [facility] Last Admin: 01/16/19 21:10 Dose: 5 mg Zolpidem Tartrate (Ambien) 5 mg PO HS PRN PRN Reason: Insomnia Last Admin: 01/16/19 21:10 Dose: 5 mg - Labs Labs: 01/15/19 07:58 01/15/19 07:58 Assessment and Plan (1) COPD exacerbation Status: Acute (2) Pansinusitis Status: Acute (3) ISIAH and COPD overlap syndrome Status: Acute
--- NOTE | 2019-01-17 12:13 | CP.PCM.PN ---
Subjective - Date & Time of Evaluation Date of Evaluation: 01/17/19 Time of Evaluation: 12:12 - Subjective Subjective: CHIEF COMPLAINTS TODAY : PERSISTENT COUGHING NOT MUCH EXPECTORATION SOB AND WHEEZING SWELLING OF FACE AND EXT SEC TO STEROIDS ROS. HEENT : N. Resp : No or hemoptysis Cardio : No anginal CP, PND, orthopnea, palpitation GI : No abd.pain, n/v ,diarrhea or GI bleeding . 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 Musculoskel : No joint swelling , Derm : No rash Psych : Normal affect. Ext : No swelling ,calf pain PE. Pt. is alert awake in no distress. V.S As noted in the chart Head ,ear nose,throat and eyes : Normal. Neck : Supple with normal carotids. Lungs: ERIC POOR AIR ENTRY WITH WHEEZE Heart : S1 & S2 normal with S4. No murmur. Abd : Soft non tender with normal bowel sounds. Neuro : Moves all ext. with no localized deficit. Ext :edema with intact pulses.Non tender calves Derm : No rashes or decubitus ulcer. LABS/RADIOLOGY: ISOLATION FOR PERTUSSIS DVT NEG ASSESSMENT/PLAN : CONT IV AB AND STEROIDS IV LASIX ENT EVAL Objective - Vital Signs/Intake and Output Vital Signs (last 24 hours): Temp Pulse Resp BP Pulse Ox 98 F 97 H 20 128/68 97 01/17/19 07:59 01/17/19 07:59 01/17/19 07:59 01/17/19 10:27 01/17/19 07:59 - Medications Medications: Current Medications Albuterol/Ipratropium (Duoneb 3 Mg/0.5 Mg (3 Ml) Ud) 3 ml INH RQ4 [facility] Last Admin: 01/17/19 08:31 Dose: 3 ml Enoxaparin Sodium (Lovenox) 40 mg SC DAILY [facility] Last Admin: 01/17/19 10:27 Dose: 40 mg Fluticasone Propionate (Flonase) 0 spr SWATI Q12H [facility] Last Admin: 01/17/19 08:35 Dose: 1 spr Furosemide (Lasix) 40 mg IVP DAILY [facility] Last Admin: 01/17/19 10:27 Dose: 40 mg Gabapentin (Neurontin) 100 mg PO Q8 [facility] Last Admin: 01/17/19 07:38 Dose: Not Given Guaifenesin (Mucinex La) 600 mg PO BID [facility] Last Admin: 01/17/19 10:26 Dose: 600 mg Hydrochlorothiazide (Hydrodiuril) 25 mg PO DAILY [facility] Last Admin: 01/17/19 10:26 Dose: 25 mg Ceftriaxone Sodium 1 gm/ (Sodium Chloride) 100 mls @ 100 mls/hr IVPB Q12H [facility]; Protocol Last Admin: 01/16/19 23:32 Dose: 100 mls/hr Azithromycin 500 mg/ Sodium (Chloride) 250 mls @ 250 mls/hr IVPB DAILY [facility]; Protocol Last Admin: 01/17/19 10:27 Dose: 250 mls/hr Losartan Potassium (Cozaar) 100 mg PO DAILY [facility] Last Admin: 01/17/19 10:26 Dose: 100 mg Methylprednisolone (Solu-Medrol) 60 mg IV Q8H [facility] Last Admin: 01/17/19 06:47 Dose: 60 mg Promethazine HCl/Codeine (Phenergan/Codeine Oral Syrup) 5 ml PO Q4 PRN PRN Reason: Cough Last Admin: 01/16/19 21:20 Dose: 5 ml Rosuvastatin Calcium (Crestor) 5 mg PO HS [facility] Last Admin: 01/16/19 21:10 Dose: 5 mg Zolpidem Tartrate (Ambien) 5 mg PO HS PRN PRN Reason: Insomnia Last Admin: 01/16/19 21:10 Dose: 5 mg - Labs Labs: 01/15/19 07:58 01/15/19 07:58 Assessment and Plan (1) COPD exacerbation Status: Acute (2) Hypertension Status: Acute (3) Leukocytosis Status: Acute
--- NOTE | 2019-01-17 14:02 | CP.PCM.PN ---
Subjective - Date & Time of Evaluation Date of Evaluation: 01/17/19 Time of Evaluation: 14:02 - Subjective Subjective: CHIEF COMPLAINTS TODAY : afebrile still coughing FEEL CONGESTED SINUSES /URT B/L LE EDEMA FEELING BETTER AFTER LASIX SEEN BY PULMONARY 01/16/19 AND NOTED ROS. HEENT : N. Resp : No or hemoptysis Cardio : No anginal CP, PND, orthopnea, palpitation GI : No abd.pain, n/v ,diarrhea or GI bleeding . 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 Musculoskel : No joint swelling , Derm : No rash Psych : Normal affect. Ext : b/l swelling /edema LE, +VE RT calf pain PE. Pt. is alert awake in no distress. V.S As noted in the chart Head ,ear nose,throat and eyes : Normal. Neck : Supple with normal carotids. Lungs: ERIC POOR AIR ENTRY WITH WHEEZE Heart : S1 & S2 normal with S4. No murmur. Abd : Soft non tender with normal bowel sounds. Neuro : Moves all ext. with no localized deficit. Ext : B/L EDEMA LE 2+, RT LE CALF TENDERNESS , +VE intact pulses. Derm : No rashes or decubitus ulcer. LABS/RADIOLOGY: BORDETELLAE PERTUSSIS DNA PCR -VE CT SINUSES W/O CONTRAST PANSINUSITIS WITH COMPLETE OPACIFICATION OF B/L MAXILLARY SINUSES REVIEWED. MYCOPLASMA IGM -VE BLOOD CULTURES -VE X TO DATE Objective - Vital Signs/Intake and Output Vital Signs (last 24 hours): Temp Pulse Resp BP Pulse Ox 98 F 97 H 20 128/68 97 01/17/19 07:59 01/17/19 07:59 01/17/19 07:59 01/17/19 10:27 01/17/19 07:59 Intake and Output: 01/17/19 01/17/19 06:59 18:59 Intake Total 240 Balance 240 - Medications Medications: Current Medications Albuterol/Ipratropium (Duoneb 3 Mg/0.5 Mg (3 Ml) Ud) 3 ml INH RQ4 [facility] Last Admin: 01/17/19 13:20 Dose: 3 ml Enoxaparin Sodium (Lovenox) 40 mg SC DAILY [facility] Last Admin: 01/17/19 10:27 Dose: 40 mg Fluticasone Propionate (Flonase) 0 spr SWATI Q12H [facility] Last Admin: 01/17/19 08:35 Dose: 1 spr Furosemide (Lasix) 40 mg IVP DAILY [facility] Last Admin: 01/17/19 10:27 Dose: 40 mg Gabapentin (Neurontin) 100 mg PO Q8 [facility] Last Admin: 01/17/19 07:38 Dose: Not Given Guaifenesin (Mucinex La) 600 mg PO BID [facility] Last Admin: 01/17/19 10:26 Dose: 600 mg Hydrochlorothiazide (Hydrodiuril) 25 mg PO DAILY [facility] Last Admin: 01/17/19 10:26 Dose: 25 mg Ceftriaxone Sodium 1 gm/ (Sodium Chloride) 100 mls @ 100 mls/hr IVPB Q12H [facility]; Protocol Last Admin: 01/17/19 12:40 Dose: 100 mls/hr Azithromycin 500 mg/ Sodium (Chloride) 250 mls @ 250 mls/hr IVPB DAILY [facility]; Protocol Last Admin: 01/17/19 10:27 Dose: 250 mls/hr Losartan Potassium (Cozaar) 100 mg PO DAILY [facility] Last Admin: 01/17/19 10:26 Dose: 100 mg Methylprednisolone (Solu-Medrol) 60 mg IV Q8H [facility] Last Admin: 01/17/19 06:47 Dose: 60 mg Promethazine HCl/Codeine (Phenergan/Codeine Oral Syrup) 5 ml PO Q4 PRN PRN Reason: Cough Last Admin: 01/16/19 21:20 Dose: 5 ml Rosuvastatin Calcium (Crestor) 5 mg PO HS [facility] Last Admin: 01/16/19 21:10 Dose: 5 mg Zolpidem Tartrate (Ambien) 5 mg PO HS PRN PRN Reason: Insomnia Last Admin: 01/16/19 21:10 Dose: 5 mg - Labs Labs: 01/15/19 07:58 01/15/19 07:58 Assessment and Plan (1) Pansinusitis Status: Acute (2) COPD exacerbation Status: Acute (3) Hyperlipidemia Status: Acute (4) Hypertension Status: Acute - Assessment and Plan (Free Text) Plan: CONTINUE iv ROCEPHIN 1 G iv PIGGYBACK EVERY 12 HOURLY 01/11/19. ON iv ZITHROMAX 500MG IVPB DAILY DAILY 01/12/19. ON MUCINEX XL 600MG PO BID 01/11/19 ON LASIX PER PMD DECREASE iv SOLU-mEDROL 60 MG EVERY 8 HOURLY PER PMD PULMONARY TOILET. D/C DROPLET PRECAUTIONS ENT EVALUATION FOR PANSINUSITUS AWAITED.
[2019-01-18] MEDS: MethylPREDNISolone 40 mg Vial IV SCH ×3 (00:14→14:44)
[2019-01-18] MEDS: Promethazine/Cod 6.25mg-10mg/5ml Syr UD PO PRN ×3 (00:16→19:29)
[2019-01-18] MEDS: Albuterol-Ipratrop 3 mg / 0.5 (3 ml) UD INH SCH ×5 (03:16→20:04)
[2019-01-18 08:06] LABS: BASO % 0.1 % (0.0-2.0); HEMOGLOBIN 13.7 g/dL (11.0-16.0); LYMPH # 0.3 K/uL (1.0-4.3); LYMPH % 2.8 % (20.0-40.0); MEAN CELL VOLUME 82.2 fL (81.0-99.0); MEAN CORPUSCULAR HEMOGLOBIN 27.5 pg (27.0-31.0); MEAN CORPUSCULAR HGB CONC 33.4 g/dL (33.0-37.0); MEAN PLATELET VOLUME 8.1 fL (7.2-11.7); MONO # 0.3 K/uL (0.0-0.8); NEUT # 10.7 K/uL (1.8-7.0); NEUT % 94.1 % (50.0-75.0); PLATELET COUNT 290 K/uL (130-400); RBC 4.97 Mil/uL (3.80-5.20); RED CELL DISTRIBUTION WIDTH 13.8 % (11.5-14.5); WHITE BLOOD COUNT 11.4 K/uL (4.8-10.8)
[2019-01-18 08:30] LABS: ALB/GLOB RATIO 1.4 (1.0-2.1); ALBUMIN 3.3 g/dL (3.5-5.0); ALT/SGPT 29 U/L (9-52); AST/SGOT 23 U/L (14-36); BLOOD UREA NITROGEN 25 mg/dL (7-17); CALCIUM 10.4 mg/dl (8.6-10.4); GFR NON-AFRICAN AMERICAN > 60
[2019-01-18 08:52] LABS: LYMPHOCYTE 5 % (20-40); MONOCYTE 2 % (0-10); NEUTROPHIL 93 % (50-75); PLATELET ESTIMATE NORMAL (NORMAL); TOTAL CELLS COUNTED 100
[2019-01-18] MEDS: Fluticasone Nasal 50 mcg/Spray NAS SCH ×2 (09:08→19:29)
[2019-01-18] MEDS: guaiFENesin 600 mg ER Tab PO SCH ×2 (09:09→18:54)
[2019-01-18] MEDS: Enoxaparin 40 mg Syringe SC SCH (09:09)
[2019-01-18] MEDS: Azithromycin 500 MG in Sodium Chloride 0.9% 250 ML IVPB SCH (10:07)
--- NOTE | 2019-01-18 11:20 | CP.PCM.PN ---
Subjective - Date & Time of Evaluation Date of Evaluation: 01/18/19 Time of Evaluation: 11:19 - Subjective Subjective: CHIEF COMPLAINTS TODAY : PERSISTENT COUGHING NOT MUCH EXPECTORATION SOB AND WHEEZING SWELLING OF FACE AND EXT SEC TO STEROIDS ROS. HEENT : N. Resp : No or hemoptysis Cardio : No anginal CP, PND, orthopnea, palpitation GI : No abd.pain, n/v ,diarrhea or GI bleeding . 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 Musculoskel : No joint swelling , Derm : No rash Psych : Normal affect. Ext : No swelling ,calf pain PE. Pt. is alert awake in no distress. V.S As noted in the chart Head ,ear nose,throat and eyes : Normal. Neck : Supple with normal carotids. Lungs: ERIC POOR AIR ENTRY WITH WHEEZE Heart : S1 & S2 normal with S4. No murmur. Abd : Soft non tender with normal bowel sounds. Neuro : Moves all ext. with no localized deficit. Ext :edema with intact pulses.Non tender calves Derm : No rashes or decubitus ulcer. LABS/RADIOLOGY: ISOLATION FOR PERTUSSIS - NEG , DVT NEG ASSESSMENT/PLAN : CONT IV AB AND STEROIDS IV LASIX D/W ENT , NO INTERVENTION CONT AB Objective - Vital Signs/Intake and Output Vital Signs (last 24 hours): Temp Pulse Resp BP Pulse Ox 97.7 F 73 18 131/86 97 01/18/19 00:55 01/18/19 08:02 01/18/19 00:55 01/18/19 09:09 01/18/19 00:55 Intake and Output: 01/17/19 01/18/19 23:59 11:59 Intake Total 1150 340 Balance 1150 340 - Medications Medications: Current Medications Albuterol/Ipratropium (Duoneb 3 Mg/0.5 Mg (3 Ml) Ud) 3 ml INH RQ4 [facility] Last Admin: 01/18/19 08:19 Dose: 3 ml Enoxaparin Sodium (Lovenox) 40 mg SC DAILY [facility] Last Admin: 01/18/19 09:09 Dose: 40 mg Fluticasone Propionate (Flonase) 0 spr SWATI Q12H [facility] Last Admin: 01/18/19 09:08 Dose: 1 spr Furosemide (Lasix) 40 mg IVP DAILY [facility] Last Admin: 01/18/19 09:09 Dose: 40 mg Gabapentin (Neurontin) 100 mg PO Q8 [facility] Last Admin: 01/18/19 07:41 Dose: Not Given Guaifenesin (Mucinex La) 600 mg PO BID [facility] Last Admin: 01/18/19 09:09 Dose: 600 mg Hydrochlorothiazide (Hydrodiuril) 25 mg PO DAILY [facility] Last Admin: 01/18/19 09:08 Dose: 25 mg Ceftriaxone Sodium 1 gm/ (Sodium Chloride) 100 mls @ 100 mls/hr IVPB Q12H [facility]; Protocol Last Admin: 01/18/19 00:15 Dose: 100 mls/hr Azithromycin 500 mg/ Sodium (Chloride) 250 mls @ 250 mls/hr IVPB DAILY [facility]; Protocol Last Admin: 01/18/19 10:07 Dose: 250 mls/hr Losartan Potassium (Cozaar) 100 mg PO DAILY [facility] Last Admin: 01/18/19 09:08 Dose: 100 mg Methylprednisolone (Solu-Medrol) 60 mg IV Q8H [facility] Last Admin: 01/18/19 06:46 Dose: 60 mg Promethazine HCl/Codeine (Phenergan/Codeine Oral Syrup) 5 ml PO Q4 PRN PRN Reason: Cough Last Admin: 01/18/19 00:16 Dose: 5 ml Rosuvastatin Calcium (Crestor) 5 mg PO HS [facility] Last Admin: 01/17/19 21:12 Dose: 5 mg Zolpidem Tartrate (Ambien) 5 mg PO HS PRN PRN Reason: Insomnia Last Admin: 01/17/19 21:12 Dose: 5 mg - Labs Labs: 01/18/19 07:49 01/18/19 07:49 Assessment and Plan (1) COPD exacerbation Status: Acute (2) Hypertension Status: Acute (3) Leukocytosis Status: Acute
--- NOTE | 2019-01-18 18:10 | CON ---
DATE: 01/18/2019 REASON FOR CONSULTATION: Sinusitis, acute/chronic. HISTORY OF PRESENT ILLNESS: This is a 68-year-old female with a one-month history of nasal congestion, bilateral, constant, moderate in intensity with no discharge. There is mild headache, frontal, bilateral, over the sinuses for one month. PAST MEDICAL HISTORY: As noted in the chart by me. MEDICATIONS: As noted in the chart by me. ALLERGIES: NOTED IN THE CHART BY ME. PHYSICAL EXAMINATION: HEAD: Atraumatic, normocephalic. FACE: Good facial movements bilaterally. CONSTITUTIONAL: Well fed, well nourished. COMMUNICATION: Communicates well and appropriately. EXTERNAL NOSE AND EARS: No masses, no lesions, no erythema, no edema. INTERNAL NOSE: Deviated septum. Large turbinates. Edema and erythema of mucosa possible. ORAL CAVITY AND OROPHARYNX: No masses. No lesions. No erythema. No edema. LIPS AND GUMS: No masses. No lesions. No erythema. No edema. NECK: Supple. THYROID: No thyromegaly. No goiter. LYMPH NODES: No lymphadenopathy of the neck. ASSESSMENT: 1. Sinusitis. 2. Deviated septum. 3. Large turbinates. PLAN: The patient should be on two weeks of antibiotics and steroids and then re-evaluated. The patient, from my plan, can be discharged home once cleared by Pulmonary. Follow up as an outpatient for surgical treatment if necessary. However, at this point, the patient is on antibiotics for about a week and that is not adequate medical treatment at this point to justify draining any sinuses. Oleg Galloway MD
--- NOTE | 2019-01-18 20:08 | CP.PCM.PN ---
Subjective - Date & Time of Evaluation Date of Evaluation: 01/18/19 Time of Evaluation: 20:08 - Subjective Subjective: CHIEF COMPLAINTS TODAY : afebrile ON NC O2 2L still coughing FEEL LESS CONGESTED C/O BONE PAINS FEELING BETTER AFTER LASIX SEEN BY ENT AND APPRECIATED ROS. HEENT : N. Resp : No or hemoptysis Cardio : No anginal CP, PND, orthopnea, palpitation GI : No abd.pain, n/v ,diarrhea or GI bleeding . 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 Musculoskel : No joint swelling , Derm : No rash Psych : Normal affect. Ext : b/l swelling /edema LE, +VE RT calf pain PE. Pt. is alert awake in no distress. V.S As noted in the chart Head ,ear nose,throat and eyes : Normal. Neck : Supple with normal carotids. Lungs: IMPROVED AERATION Heart : S1 & S2 normal with S4. No murmur. Abd : Soft non tender with normal bowel sounds. Neuro : Moves all ext. with no localized deficit. Ext : B/L EDEMA LE 2+, RT LE CALF TENDERNESS , +VE intact pulses. Derm : No rashes or decubitus ulcer. LABS/RADIOLOGY: BORDETELLAE PERTUSSIS DNA PCR -VE CT SINUSES W/O CONTRAST PANSINUSITIS WITH COMPLETE OPACIFICATION OF B/L MAXILLARY SINUSES REVIEWED. MYCOPLASMA IGM -VE BLOOD CULTURES -VE X TO DATE Objective - Vital Signs/Intake and Output Vital Signs (last 24 hours): Temp Pulse Resp BP Pulse Ox 97.9 F 71 18 120/75 95 01/18/19 16:00 01/18/19 16:00 01/18/19 16:00 01/18/19 16:00 01/18/19 16:00 Intake and Output: 01/18/19 01/19/19 18:59 06:59 Intake Total 600 Balance 600 - Medications Medications: Current Medications Albuterol/Ipratropium (Duoneb 3 Mg/0.5 Mg (3 Ml) Ud) 3 ml INH RQ4 [facility] Last Admin: 01/18/19 20:04 Dose: 3 ml Enoxaparin Sodium (Lovenox) 40 mg SC DAILY [facility] Last Admin: 01/18/19 09:09 Dose: 40 mg Fluticasone Propionate (Flonase) 0 spr SWATI Q12H [facility] Last Admin: 01/18/19 19:29 Dose: 1 spr Furosemide (Lasix) 40 mg IVP DAILY [facility] Last Admin: 01/18/19 09:09 Dose: 40 mg Gabapentin (Neurontin) 100 mg PO Q8 [facility] Last Admin: 01/18/19 13:22 Dose: Not Given Guaifenesin (Mucinex La) 600 mg PO BID [facility] Last Admin: 01/18/19 18:54 Dose: 600 mg Hydrochlorothiazide (Hydrodiuril) 25 mg PO DAILY [facility] Last Admin: 01/18/19 09:08 Dose: 25 mg Ceftriaxone Sodium 1 gm/ (Sodium Chloride) 100 mls @ 100 mls/hr IVPB Q12H [facility]; Protocol Last Admin: 01/18/19 12:15 Dose: 100 mls/hr Azithromycin 500 mg/ Sodium (Chloride) 250 mls @ 250 mls/hr IVPB DAILY [facility]; Protocol Last Admin: 01/18/19 10:07 Dose: 250 mls/hr Losartan Potassium (Cozaar) 100 mg PO DAILY [facility] Last Admin: 01/18/19 09:08 Dose: 100 mg Methylprednisolone (Solu-Medrol) 60 mg IV Q8H [facility] Last Admin: 01/18/19 14:44 Dose: 60 mg Promethazine HCl/Codeine (Phenergan/Codeine Oral Syrup) 5 ml PO Q4 PRN PRN Reason: Cough Last Admin: 01/18/19 19:29 Dose: 5 ml Rosuvastatin Calcium (Crestor) 5 mg PO HS [facility] Last Admin: 01/17/19 21:12 Dose: 5 mg Zolpidem Tartrate (Ambien) 5 mg PO HS PRN PRN Reason: Insomnia Last Admin: 01/17/19 21:12 Dose: 5 mg - Labs Labs: 01/18/19 07:49 01/18/19 07:49 Assessment and Plan (1) Pansinusitis Status: Acute (2) COPD exacerbation Status: Acute (3) Hyperlipidemia Status: Acute (4) Hypertension Status: Acute - Assessment and Plan (Free Text) Plan: CONTINUE iv ROCEPHIN 1 G iv PIGGYBACK EVERY 12 HOURLY 01/11/19. ON iv ZITHROMAX 500MG IVPB DAILY DAILY 01/12/19. ON MUCINEX XL 600MG PO BID 01/11/19 Dtap 0.5ml in am IM. ( SPOKE TO PHARMACY ) ON LASIX PER PMD VITAMIN D 25 OH LEVEL DECREASE iv SOLU-mEDROL 40 MG EVERY 12 HOURLY DISCUSSED PMD PULMONARY TOILET. D/C DROPLET PRECAUTIONS
--- NOTE | 2019-01-18 20:32 | CP.PCM.PN ---
Subjective - Date & Time of Evaluation Date of Evaluation: 01/18/19 Time of Evaluation: 19:00 - Subjective Subjective: Patient seen at bedside. Afebrile. 97% O2 saturation on room air. Pertussis PCR came back negative. Markedly improved from yesterday. Still complains of productive cough and shortness of breath. However patient states she feels less stuffed. Patient still finds it difficult to sleep requiring zolpidem. States her leg swelling as decreased although complains of mild pain in lower extremities due to swelling. ROS: Patient admits to cough, sinus pressure, dry throat, mild extremity swelling All other systems reviewed and negative PE: HEENT: Atraumatic, normocephalic, moist mucous membranes, normal neck inspection. Unable to inspect ears. Respiratory: Lungs clear to auscultation bilaterally, coughing Cardiovascular: regular rate and rhythm GI/abdominal: normoactive bowel sounds Extremities: no pedal edema Neurologic: alert Assesment/Plan 1. COPD exacerbation. Continue current regimen of nebulizers and steriods. Continue azithromycin and ceftriaxone Pertussis negative. 2. Pansinusitis. Continue IV antibiotics and mucolytic's. Seen by ENT and no drainage at this point Upper airway cough syndrome to postnasal drip. 3. ISIAH and COPD overlap syndrome. Objective - Vital Signs/Intake and Output Vital Signs (last 24 hours): Temp Pulse Resp BP Pulse Ox 97.9 F 71 18 120/75 95 01/18/19 16:00 01/18/19 16:00 01/18/19 16:00 01/18/19 16:00 01/18/19 16:00 Intake and Output: 01/18/19 01/19/19 18:59 06:59 Intake Total 600 Balance 600 - Medications Medications: Current Medications Albuterol/Ipratropium (Duoneb 3 Mg/0.5 Mg (3 Ml) Ud) 3 ml INH RQ4 [facility] Last Admin: 01/18/19 20:04 Dose: 3 ml Diphtheria/Tetanus/Acell Pertussis (Infanrix (Age 6wk To 7yr)) 0.5 ml IM .ONCE ONE Stop: 01/19/19 10:31 Enoxaparin Sodium (Lovenox) 40 mg SC DAILY [facility] Last Admin: 01/18/19 09:09 Dose: 40 mg Fluticasone Propionate (Flonase) 0 spr SWATI Q12H [facility] Last Admin: 01/18/19 19:29 Dose: 1 spr Furosemide (Lasix) 40 mg IVP DAILY [facility] Last Admin: 01/18/19 09:09 Dose: 40 mg Gabapentin (Neurontin) 100 mg PO Q8 [facility] Last Admin: 01/18/19 13:22 Dose: Not Given Guaifenesin (Mucinex La) 600 mg PO BID [facility] Last Admin: 01/18/19 18:54 Dose: 600 mg Hydrochlorothiazide (Hydrodiuril) 25 mg PO DAILY [facility] Last Admin: 01/18/19 09:08 Dose: 25 mg Ceftriaxone Sodium 1 gm/ (Sodium Chloride) 100 mls @ 100 mls/hr IVPB Q12H [facility]; Protocol Last Admin: 01/18/19 12:15 Dose: 100 mls/hr Azithromycin 500 mg/ Sodium (Chloride) 250 mls @ 250 mls/hr IVPB DAILY [facility]; Protocol Last Admin: 01/18/19 10:07 Dose: 250 mls/hr Losartan Potassium (Cozaar) 100 mg PO DAILY [facility] Last Admin: 01/18/19 09:08 Dose: 100 mg Methylprednisolone (Solu-Medrol) 60 mg IV Q8H [facility] Last Admin: 01/18/19 14:44 Dose: 60 mg Promethazine HCl/Codeine (Phenergan/Codeine Oral Syrup) 5 ml PO Q4 PRN PRN Reason: Cough Last Admin: 01/18/19 19:29 Dose: 5 ml Rosuvastatin Calcium (Crestor) 5 mg PO HS [facility] Last Admin: 01/17/19 21:12 Dose: 5 mg Zolpidem Tartrate (Ambien) 5 mg PO HS PRN PRN Reason: Insomnia Last Admin: 01/17/19 21:12 Dose: 5 mg - Labs Labs: 01/18/19 07:49 01/18/19 07:49 Assessment and Plan (1) COPD exacerbation Status: Acute (2) Pansinusitis Status: Acute (3) ISIAH and COPD overlap syndrome Status: Acute
[2019-01-18] MEDS ORDERED: Tetanus/Diphtheria Toxoids 0.5 ml Syringe IM ONE (20:45)
[2019-01-19] MEDS: Albuterol-Ipratrop 3 mg / 0.5 (3 ml) UD INH SCH ×3 (01:15→07:42)
[2019-01-19] MEDS: Fluticasone Nasal 50 mcg/Spray NAS SCH ×2 (08:50→19:27)
[2019-01-19] MEDS: Enoxaparin 40 mg Syringe SC SCH (09:49)
[2019-01-19] MEDS: Promethazine/Cod 6.25mg-10mg/5ml Syr UD PO PRN (09:49)
[2019-01-19] MEDS: guaiFENesin 600 mg ER Tab PO SCH ×2 (09:50→17:26)
[2019-01-19] MEDS: MethylPREDNISolone 40 mg Vial IV SCH ×2 (09:50→21:46)
[2019-01-19] MEDS: Azithromycin 500 MG in Sodium Chloride 0.9% 250 ML IVPB SCH (09:56)
[2019-01-19] MEDS ORDERED: DTap Vaccine 0.5 ml Vial IM ONE (10:30)
[2019-01-19] MEDS ORDERED: Tdap Vaccine 0.5 ml Vial (10-64 yrs) IM ONE (10:30)
--- NOTE | 2019-01-19 14:36 | CP.PCM.PN ---
Subjective - Date & Time of Evaluation Date of Evaluation: 01/19/19 Time of Evaluation: 14:35 - Subjective Subjective: WHEEZING LESS VS STABLE URT CONGESTION WITH NASAL VOICE LUNG AIR ENTRY BETTER STEROIDS DECREASED CONT IV AB Objective - Vital Signs/Intake and Output Vital Signs (last 24 hours): Temp Pulse Resp BP Pulse Ox 97.8 F 103 H 20 122/80 94 L 01/19/19 07:00 01/19/19 12:00 01/19/19 07:00 01/19/19 09:50 01/19/19 07:00 - Medications Medications: Current Medications Enoxaparin Sodium (Lovenox) 40 mg SC DAILY [facility] Last Admin: 01/19/19 09:49 Dose: 40 mg Fluticasone Propionate (Flonase) 0 spr SWATI Q12H [facility] Last Admin: 01/19/19 08:50 Dose: 1 spr Furosemide (Lasix) 40 mg IVP DAILY [facility] Last Admin: 01/19/19 09:50 Dose: 40 mg Gabapentin (Neurontin) 100 mg PO Q8 [facility] Last Admin: 01/19/19 06:48 Dose: Not Given Guaifenesin (Mucinex La) 600 mg PO BID [facility] Last Admin: 01/19/19 09:50 Dose: 600 mg Hydrochlorothiazide (Hydrodiuril) 25 mg PO DAILY [facility] Last Admin: 01/19/19 09:55 Dose: 25 mg Ceftriaxone Sodium 1 gm/ (Sodium Chloride) 100 mls @ 100 mls/hr IVPB Q12H [facility]; Protocol Last Admin: 01/19/19 12:28 Dose: 100 mls/hr Azithromycin 500 mg/ Sodium (Chloride) 250 mls @ 250 mls/hr IVPB DAILY [facility]; Protocol Last Admin: 01/19/19 09:56 Dose: 250 mls/hr Losartan Potassium (Cozaar) 100 mg PO DAILY [facility] Last Admin: 01/19/19 09:49 Dose: 100 mg Methylprednisolone (Solu-Medrol) 40 mg IV Q12 [facility] Last Admin: 01/19/19 09:50 Dose: 40 mg Promethazine HCl/Codeine (Phenergan/Codeine Oral Syrup) 5 ml PO Q4 PRN PRN Reason: Cough Last Admin: 01/19/19 09:49 Dose: 5 ml Rosuvastatin Calcium (Crestor) 5 mg PO HS [facility] Last Admin: 01/18/19 21:44 Dose: 5 mg Zolpidem Tartrate (Ambien) 5 mg PO HS PRN PRN Reason: Insomnia Last Admin: 01/18/19 21:44 Dose: 5 mg - Labs Labs: 01/18/19 07:49 01/18/19 07:49 Assessment and Plan (1) COPD exacerbation Status: Acute (2) Hypertension Status: Acute (3) Leukocytosis Status: Acute
--- NOTE | 2019-01-19 23:20 | CP.PCM.PN ---
Subjective - Date & Time of Evaluation Date of Evaluation: 01/19/19 Time of Evaluation: 23:19 - Subjective Subjective: CHIEF COMPLAINTS TODAY : afebrile ON NC O2 2L FEEL LESS CONGESTED LESS EDEMA PT GOT Dtap 01/19/19 ROS. HEENT : N. Resp : No or hemoptysis Cardio : No anginal CP, PND, orthopnea, palpitation GI : No abd.pain, n/v ,diarrhea or GI bleeding . 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 Musculoskel : No joint swelling , Derm : No rash Psych : Normal affect. Ext : b/l swelling /edema LE, +VE RT calf pain PE. Pt. is alert awake in no distress. V.S As noted in the chart Head ,ear nose,throat and eyes : Normal. Neck : Supple with normal carotids. Lungs: IMPROVED AERATION Heart : S1 & S2 normal with S4. No murmur. Abd : Soft non tender with normal bowel sounds. Neuro : Moves all ext. with no localized deficit. Ext : B/L EDEMA LE 2+, RT LE CALF TENDERNESS , +VE intact pulses. Derm : No rashes or decubitus ulcer. LABS/RADIOLOGY: VIT D 25 OH LEVEL 26.1 LOW BORDETELLAE PERTUSSIS DNA PCR -VE CT SINUSES W/O CONTRAST PANSINUSITIS WITH COMPLETE OPACIFICATION OF B/L MAXILLARY SINUSES REVIEWED. MYCOPLASMA IGM -VE Objective - Vital Signs/Intake and Output Vital Signs (last 24 hours): Temp Pulse Resp BP Pulse Ox 97.9 F 70 16 125/65 97 01/19/19 22:00 01/19/19 22:00 01/19/19 22:00 01/19/19 22:00 01/19/19 22:00 Intake and Output: 01/19/19 01/20/19 18:59 06:59 Intake Total 100 300 Balance 100 300 - Medications Medications: Current Medications Enoxaparin Sodium (Lovenox) 40 mg SC DAILY [facility] Last Admin: 01/19/19 09:49 Dose: 40 mg Fluticasone Propionate (Flonase) 0 spr SWATI Q12H [facility] Last Admin: 01/19/19 19:27 Dose: 1 spr Furosemide (Lasix) 40 mg IVP DAILY [facility] Last Admin: 01/19/19 09:50 Dose: 40 mg Gabapentin (Neurontin) 100 mg PO Q8 [facility] Last Admin: 01/19/19 21:45 Dose: Not Given Guaifenesin (Mucinex La) 600 mg PO BID [facility] Last Admin: 01/19/19 17:26 Dose: 600 mg Hydrochlorothiazide (Hydrodiuril) 25 mg PO DAILY [facility] Last Admin: 01/19/19 09:55 Dose: 25 mg Ceftriaxone Sodium 1 gm/ (Sodium Chloride) 100 mls @ 100 mls/hr IVPB Q12H [facility]; Protocol Last Admin: 01/19/19 12:28 Dose: 100 mls/hr Azithromycin 500 mg/ Sodium (Chloride) 250 mls @ 250 mls/hr IVPB DAILY [facility]; Protocol Last Admin: 01/19/19 09:56 Dose: 250 mls/hr Losartan Potassium (Cozaar) 100 mg PO DAILY [facility] Last Admin: 01/19/19 09:49 Dose: 100 mg Methylprednisolone (Solu-Medrol) 40 mg IV Q12 [facility] Last Admin: 01/19/19 21:46 Dose: 40 mg Promethazine HCl/Codeine (Phenergan/Codeine Oral Syrup) 5 ml PO Q4 PRN PRN Reason: Cough Last Admin: 01/19/19 09:49 Dose: 5 ml Rosuvastatin Calcium (Crestor) 5 mg PO HS [facility] Last Admin: 01/19/19 21:44 Dose: 5 mg Zolpidem Tartrate (Ambien) 5 mg PO HS PRN PRN Reason: Insomnia Last Admin: 01/19/19 21:44 Dose: 5 mg - Labs Labs: 01/18/19 07:49 01/18/19 07:49 Assessment and Plan (1) Pansinusitis Status: Acute (2) COPD exacerbation Status: Acute (3) Hyperlipidemia Status: Acute (4) Hypertension Status: Acute - Assessment and Plan (Free Text) Plan: CONTINUE iv ROCEPHIN 1 G iv PIGGYBACK EVERY 12 HOURLY 01/11/19. ON iv ZITHROMAX 500MG IVPB DAILY DAILY 01/12/19. ON MUCINEX XL 600MG PO BID 01/11/19 ON LASIX PER PMD START VIT D 5000UNIT DRISCOL 1TAB Q 7DAY X 12 DOSES DECREASE iv SOLU-mEDROL 40 MG EVERY 12 HOURLY. PULMONARY TOILET/ as PER PULMONARY.
[2019-01-20] MEDS ORDERED: Ergocalciferol 50,000 Intl Units Cap PO SCH (07:00)
[2019-01-20] MEDS: Fluticasone Nasal 50 mcg/Spray NAS SCH ×2 (08:20→20:38)
[2019-01-20] MEDS: guaiFENesin 600 mg ER Tab PO SCH ×2 (09:21→17:46)
[2019-01-20] MEDS: MethylPREDNISolone 40 mg Vial IV SCH ×2 (09:21→21:46)
[2019-01-20] MEDS: Enoxaparin 40 mg Syringe SC SCH (09:23)
[2019-01-20] MEDS: Azithromycin 500 MG in Sodium Chloride 0.9% 250 ML IVPB SCH (09:24)
--- NOTE | 2019-01-20 12:01 | CP.PCM.PN ---
Subjective - Date & Time of Evaluation Date of Evaluation: 01/20/19 Time of Evaluation: 12:01 - Subjective Subjective: CHIEF COMPLAINTS TODAY : afebrile ON NC O2 2L FEELING BETTER LESS NASAL TWANG PT GOT Dtap 01/19/19--- NO SIDEEFFECTS ROS. HEENT : N. Resp : No or hemoptysis Cardio : No anginal CP, PND, orthopnea, palpitation GI : No abd.pain, n/v ,diarrhea or GI bleeding . PRINT CUTTER : No headache, vertigo, focal deficit. Musculoskel : No joint swelling , Derm : No rash Psych : Normal affect. Ext : b/l swelling /edema LE, +VE RT calf pain PE. Pt. is alert awake in no distress. V.S As noted in the chart Head ,ear nose,throat and eyes : Normal. Neck : Supple with normal carotids. Lungs: IMPROVED AERATION -VE WHEEZE Heart : S1 & S2 normal with S4. No murmur. Abd : Soft non tender with normal bowel sounds. Neuro : Moves all ext. with no localized deficit. Ext : B/L EDEMA LE 2+, RT LE CALF TENDERNESS , +VE intact pulses. Derm : No rashes or decubitus ulcer. LABS/RADIOLOGY: BORDETELLAE PERTUSSIS DNA PCR -VE CT SINUSES W/O CONTRAST PANSINUSITIS WITH COMPLETE OPACIFICATION OF B/L MAXILLARY SINUSES REVIEWED. MYCOPLASMA IGM -VE Objective - Vital Signs/Intake and Output Vital Signs (last 24 hours): Temp Pulse Resp BP Pulse Ox 97.8 F 62 20 128/69 98 01/20/19 08:18 01/20/19 08:18 01/20/19 08:18 01/20/19 09:22 01/20/19 08:18 Intake and Output: 01/20/19 01/20/19 06:59 18:59 Intake Total 300 Balance 300 - Medications Medications: Current Medications Enoxaparin Sodium (Lovenox) 40 mg SC DAILY [facility] Last Admin: 01/20/19 09:23 Dose: 40 mg Ergocalciferol (Drisdol 50,000 Intl Units Cap) 1 cap PO Q7D [facility] Last Admin: 01/20/19 08:00 Dose: 1 cap Fluticasone Propionate (Flonase) 0 spr SWATI Q12H [facility] Last Admin: 01/20/19 08:20 Dose: 1 spr Furosemide (Lasix) 40 mg IVP DAILY [facility] Last Admin: 01/20/19 09:22 Dose: 40 mg Gabapentin (Neurontin) 100 mg PO Q8 [facility] Last Admin: 01/20/19 06:06 Dose: Not Given Guaifenesin (Mucinex La) 600 mg PO BID [facility] Last Admin: 01/20/19 09:21 Dose: 600 mg Hydrochlorothiazide (Hydrodiuril) 25 mg PO DAILY [facility] Last Admin: 01/20/19 09:22 Dose: 25 mg Ceftriaxone Sodium 1 gm/ (Sodium Chloride) 100 mls @ 100 mls/hr IVPB Q12H [facility]; Protocol Last Admin: 01/20/19 00:38 Dose: 100 mls/hr Azithromycin 500 mg/ Sodium (Chloride) 250 mls @ 250 mls/hr IVPB DAILY [facility]; Protocol Last Admin: 01/20/19 09:24 Dose: 250 mls/hr Losartan Potassium (Cozaar) 100 mg PO DAILY [facility] Last Admin: 01/20/19 09:22 Dose: 100 mg Methylprednisolone (Solu-Medrol) 40 mg IV Q12 [facility] Last Admin: 01/20/19 09:21 Dose: 40 mg Promethazine HCl/Codeine (Phenergan/Codeine Oral Syrup) 5 ml PO Q4 PRN PRN Reason: Cough Last Admin: 01/19/19 09:49 Dose: 5 ml Rosuvastatin Calcium (Crestor) 5 mg PO HS [facility] Last Admin: 01/19/19 21:44 Dose: 5 mg Zolpidem Tartrate (Ambien) 5 mg PO HS PRN PRN Reason: Insomnia Last Admin: 01/19/19 21:44 Dose: 5 mg - Labs Labs: 01/18/19 07:49 01/18/19 07:49 Assessment and Plan (1) Pansinusitis Status: Acute (2) COPD exacerbation Status: Acute (3) Hyperlipidemia Status: Acute (4) Hypertension Status: Acute - Assessment and Plan (Free Text) Plan: CONTINUE iv ROCEPHIN 1 G iv PIGGYBACK EVERY 12 HOURLY 01/11/19. ON iv ZITHROMAX 500MG IVPB DAILY DAILY 01/12/19. CAN SWITCH PT TO PO AUGMENTIN 875 PO BID X 10DAYS PO MEDROLPACK TAPERING DOSE IN AM ON MUCINEX XL 600MG PO BID 01/11/19 ON LASIX PER PMD START VIT D 5000UNIT DRISCOL 1TAB Q 7DAY X 12 DOSES DECREASE iv SOLU-mEDROL 40 MG EVERY 12 HOURLY. PULMONARY TOILET/ as PER PULMONARY.
--- NOTE | 2019-01-20 12:47 | CP.PCM.PN ---
Subjective - Date & Time of Evaluation Date of Evaluation: 01/20/19 Time of Evaluation: 12:46 - Subjective Subjective: WHEEZING LESS VS STABLE URT CONGESTION WITH NASAL VOICE LUNG AIR ENTRY BETTER STEROIDS DECREASED CONT IV AB Objective - Vital Signs/Intake and Output Vital Signs (last 24 hours): Temp Pulse Resp BP Pulse Ox 97.8 F 62 20 128/69 98 01/20/19 08:18 01/20/19 10:00 01/20/19 08:18 01/20/19 09:22 01/20/19 08:18 - Medications Medications: Current Medications Enoxaparin Sodium (Lovenox) 40 mg SC DAILY [facility] Last Admin: 01/20/19 09:23 Dose: 40 mg Ergocalciferol (Drisdol 50,000 Intl Units Cap) 1 cap PO Q7D [facility] Last Admin: 01/20/19 08:00 Dose: 1 cap Fluticasone Propionate (Flonase) 0 spr SWATI Q12H [facility] Last Admin: 01/20/19 08:20 Dose: 1 spr Furosemide (Lasix) 40 mg IVP DAILY [facility] Last Admin: 01/20/19 09:22 Dose: 40 mg Gabapentin (Neurontin) 100 mg PO Q8 [facility] Last Admin: 01/20/19 06:06 Dose: Not Given Guaifenesin (Mucinex La) 600 mg PO BID [facility] Last Admin: 01/20/19 09:21 Dose: 600 mg Hydrochlorothiazide (Hydrodiuril) 25 mg PO DAILY [facility] Last Admin: 01/20/19 09:22 Dose: 25 mg Ceftriaxone Sodium 1 gm/ (Sodium Chloride) 100 mls @ 100 mls/hr IVPB Q12H [facility]; Protocol Last Admin: 01/20/19 00:38 Dose: 100 mls/hr Azithromycin 500 mg/ Sodium (Chloride) 250 mls @ 250 mls/hr IVPB DAILY [facility]; Protocol Last Admin: 01/20/19 09:24 Dose: 250 mls/hr Losartan Potassium (Cozaar) 100 mg PO DAILY [facility] Last Admin: 01/20/19 09:22 Dose: 100 mg Methylprednisolone (Solu-Medrol) 40 mg IV Q12 [facility] Last Admin: 01/20/19 09:21 Dose: 40 mg Promethazine HCl/Codeine (Phenergan/Codeine Oral Syrup) 5 ml PO Q4 PRN PRN Reason: Cough Last Admin: 01/19/19 09:49 Dose: 5 ml Rosuvastatin Calcium (Crestor) 5 mg PO HS [facility] Last Admin: 01/19/19 21:44 Dose: 5 mg Zolpidem Tartrate (Ambien) 5 mg PO HS PRN PRN Reason: Insomnia Last Admin: 01/19/19 21:44 Dose: 5 mg - Labs Labs: 01/18/19 07:49 01/18/19 07:49 Assessment and Plan (1) COPD exacerbation Status: Acute (2) Hypertension Status: Acute (3) Leukocytosis Status: Acute
--- NOTE | 2019-01-20 13:26 | CP.PCM.PN ---
Subjective - Date & Time of Evaluation Date of Evaluation: 01/20/19 Time of Evaluation: 13:26 - Subjective Subjective: Pulmonary follow up, Covering Dr Cornelius The Patient was seen and examined at the bedside, Medical records reviewed, and management issues were discussed and formulated with the house staff. Events reviewed Patient seen at bedside. Afebrile. 97% O2 saturation on room air. Pertussis PCR came back negative. Markedly improved from yesterday. Still complains of productive cough and shortness of breath. However patient states she feels less stuffed. Patient still finds it difficult to sleep requiring zolpidem. States her leg swelling as decreased although complains of mild pain in lower extremities due to swelling. Patient feeling better today, admits to cough, sinus pressure, dry throat, mild extremity swelling Less SOB, No fever/chills Objective - Vital Signs/Intake and Output Vital Signs (last 24 hours): Temp Pulse Resp BP Pulse Ox 97.8 F 62 20 128/69 98 01/20/19 08:18 01/20/19 10:00 01/20/19 08:18 01/20/19 09:22 01/20/19 08:18 Intake and Output: 01/20/19 01/20/19 06:59 18:59 Intake Total 300 Balance 300 - Medications Medications: Current Medications Enoxaparin Sodium (Lovenox) 40 mg SC DAILY [facility] Last Admin: 01/20/19 09:23 Dose: 40 mg Ergocalciferol (Drisdol 50,000 Intl Units Cap) 1 cap PO Q7D [facility] Last Admin: 01/20/19 08:00 Dose: 1 cap Fluticasone Propionate (Flonase) 0 spr SWATI Q12H [facility] Last Admin: 01/20/19 08:20 Dose: 1 spr Furosemide (Lasix) 40 mg IVP DAILY [facility] Last Admin: 01/20/19 09:22 Dose: 40 mg Gabapentin (Neurontin) 100 mg PO Q8 [facility] Last Admin: 01/20/19 06:06 Dose: Not Given Guaifenesin (Mucinex La) 600 mg PO BID [facility] Last Admin: 01/20/19 09:21 Dose: 600 mg Hydrochlorothiazide (Hydrodiuril) 25 mg PO DAILY [facility] Last Admin: 01/20/19 09:22 Dose: 25 mg Ceftriaxone Sodium 1 gm/ (Sodium Chloride) 100 mls @ 100 mls/hr IVPB Q12H [facility]; Protocol Last Admin: 01/20/19 13:15 Dose: 100 mls/hr Azithromycin 500 mg/ Sodium (Chloride) 250 mls @ 250 mls/hr IVPB DAILY [facility]; Protocol Last Admin: 01/20/19 09:24 Dose: 250 mls/hr Losartan Potassium (Cozaar) 100 mg PO DAILY [facility] Last Admin: 01/20/19 09:22 Dose: 100 mg Methylprednisolone (Solu-Medrol) 40 mg IV Q12 [facility] Last Admin: 01/20/19 09:21 Dose: 40 mg Promethazine HCl/Codeine (Phenergan/Codeine Oral Syrup) 5 ml PO Q4 PRN PRN Reason: Cough Last Admin: 01/19/19 09:49 Dose: 5 ml Rosuvastatin Calcium (Crestor) 5 mg PO HS [facility] Last Admin: 01/19/19 21:44 Dose: 5 mg Zolpidem Tartrate (Ambien) 5 mg PO HS PRN PRN Reason: Insomnia Last Admin: 01/19/19 21:44 Dose: 5 mg - Labs Labs: 01/18/19 07:49 01/18/19 07:49 - Constitutional Appears: Well, Non-toxic - Head Exam Head Exam: ATRAUMATIC, NORMAL INSPECTION - Eye Exam Eye Exam: EOMI, Normal appearance. absent: Conjunctival injection - Neck Exam Neck Exam: Full ROM - Respiratory Exam Respiratory Exam: Decreased Breath Sounds, Rhonchi. absent: Accessory Muscle Use, Chest Wall Tenderness, Rales, Wheezes - Cardiovascular Exam Cardiovascular Exam: REGULAR RHYTHM, +S1, +S2. absent: Murmur - GI/Abdominal Exam GI & Abdominal Exam: Soft, Normal Bowel Sounds. absent: Tenderness Assessment and Plan (1) COPD exacerbation Status: Acute (2) Chest pain Status: Acute (3) ISIAH and COPD overlap syndrome Status: Acute (4) Pansinusitis Status: Acute - Assessment and Plan (Free Text) Assessment: 1. COPD exacerbation. Continue current regimen of nebulizers and steriods. Continue azithromycin and ceftriaxone Pertussis negative. 2. Pansinusitis. Continue IV antibiotics and mucolytic's. Seen by ENT and no drainage at this point Upper airway cough syndrome to postnasal drip. 3. SIIAH and COPD overlap syndrome.
[2019-01-21 07:40] LABS: BASO % 0.2 % (0.0-2.0); EOS % 0.2 % (0.0-4.0); HEMOGLOBIN 15.4 g/dL (11.0-16.0); LYMPH # 1.5 K/uL (1.0-4.3); LYMPH % 13.4 % (20.0-40.0); MEAN CELL VOLUME 82.6 fL (81.0-99.0); MEAN CORPUSCULAR HEMOGLOBIN 27.4 pg (27.0-31.0); MEAN CORPUSCULAR HGB CONC 33.1 g/dL (33.0-37.0); MEAN PLATELET VOLUME 8.6 fL (7.2-11.7); MONO # 0.9 K/uL (0.0-0.8); MONO % 7.8 % (0.0-10.0); NEUT # 8.6 K/uL (1.8-7.0); NEUT % 78.4 % (50.0-75.0); RBC 5.62 Mil/uL (3.80-5.20); RED CELL DISTRIBUTION WIDTH 13.7 % (11.5-14.5)
[2019-01-21 07:50] LABS: ALB/GLOB RATIO 1.5 (1.0-2.1); ALBUMIN 3.7 g/dL (3.5-5.0); ALT/SGPT 37 U/L (9-52); AST/SGOT 32 U/L (14-36); BLOOD UREA NITROGEN 36 mg/dL (7-17); CALCIUM 10.7 mg/dl (8.6-10.4); GFR NON-AFRICAN AMERICAN > 60
[2019-01-21] MEDS: Fluticasone Nasal 50 mcg/Spray NAS SCH (08:35)
[2019-01-21] MEDS: guaiFENesin 600 mg ER Tab PO SCH (09:14)
[2019-01-21] MEDS: Enoxaparin 40 mg Syringe SC SCH (09:15)
[2019-01-21] MEDS: MethylPREDNISolone 40 mg Vial IV SCH (09:17)
[2019-01-21] MEDS: Azithromycin 500 MG in Sodium Chloride 0.9% 250 ML IVPB SCH (09:18)
--- NOTE | 2019-01-21 11:18 | CP.PCM.PN ---
Subjective - Date & Time of Evaluation Date of Evaluation: 01/21/19 Time of Evaluation: 11:16 - Subjective Subjective: Pulmonology Progress Note for Dr. Cornelius's service S/E at bedside Reports much improved sob Reports less facial congestion and less pressure Denies all other complaints. Objective - Vital Signs/Intake and Output Vital Signs (last 24 hours): Temp Pulse Resp BP Pulse Ox 97.9 F 120 H 18 119/70 98 01/21/19 07:00 01/21/19 09:13 01/21/19 07:00 01/21/19 09:14 01/21/19 07:00 - Medications Medications: Current Medications Enoxaparin Sodium (Lovenox) 40 mg SC DAILY [facility] Last Admin: 01/21/19 09:15 Dose: 40 mg Ergocalciferol (Drisdol 50,000 Intl Units Cap) 1 cap PO Q7D [facility] Last Admin: 01/20/19 08:00 Dose: 1 cap Fluticasone Propionate (Flonase) 0 spr SWATI Q12H [facility] Last Admin: 01/21/19 08:35 Dose: 1 spr Furosemide (Lasix) 40 mg IVP DAILY [facility] Last Admin: 01/21/19 09:14 Dose: 40 mg Gabapentin (Neurontin) 100 mg PO Q8 [facility] Last Admin: 01/20/19 21:44 Dose: Not Given Guaifenesin (Mucinex La) 600 mg PO BID [facility] Last Admin: 01/21/19 09:14 Dose: 600 mg Hydrochlorothiazide (Hydrodiuril) 25 mg PO DAILY [facility] Last Admin: 01/21/19 09:17 Dose: 25 mg Ceftriaxone Sodium 1 gm/ (Sodium Chloride) 100 mls @ 100 mls/hr IVPB Q12H [facility]; Protocol Last Admin: 01/21/19 00:12 Dose: 100 mls/hr Azithromycin 500 mg/ Sodium (Chloride) 250 mls @ 250 mls/hr IVPB DAILY [facility]; Protocol Last Admin: 01/21/19 09:18 Dose: 250 mls/hr Losartan Potassium (Cozaar) 100 mg PO DAILY [facility] Last Admin: 01/21/19 09:14 Dose: 100 mg Methylprednisolone (Solu-Medrol) 40 mg IV Q12 [facility] Last Admin: 01/21/19 09:17 Dose: 40 mg Promethazine HCl/Codeine (Phenergan/Codeine Oral Syrup) 5 ml PO Q4 PRN PRN Reason: Cough Last Admin: 01/19/19 09:49 Dose: 5 ml Rosuvastatin Calcium (Crestor) 5 mg PO HS [facility] Last Admin: 01/20/19 21:46 Dose: 5 mg Zolpidem Tartrate (Ambien) 5 mg PO HS PRN PRN Reason: Insomnia Last Admin: 01/20/19 21:46 Dose: 5 mg - Labs Labs: 01/21/19 07:28 01/21/19 07:28 - Constitutional Appears: Non-toxic, No Acute Distress - Head Exam Head Exam: NORMAL INSPECTION, NORMOCEPHALIC Additional comments: slight TTP due to pressure near nasal and supraorbital sinuses - Eye Exam Eye Exam: Normal appearance - ENT Exam ENT Exam: Mucous Membranes Moist - Respiratory Exam Respiratory Exam: Clear to Ausculation Bilateral, NORMAL BREATHING PATTERN. absent: Rales, Rhonchi, Wheezes - Cardiovascular Exam Cardiovascular Exam: REGULAR RHYTHM, +S1, +S2 - GI/Abdominal Exam GI & Abdominal Exam: Soft, Normal Bowel Sounds. absent: Guarding, Rigid, Tenderness - Neurological Exam Neurological Exam: Awake, Oriented x3 - Psychiatric Exam Psychiatric exam: Normal Affect, Normal Mood - Skin Skin Exam: Dry, Intact, Normal Color Assessment and Plan - Assessment and Plan (Free Text) Assessment: 68 yo female admitted for sob and facial pressure. Pulm consulted for sob. Plan: A: Sinusitis Cough P: Continue IV abx for complete 2 weeks as patient feeling better Continue IV steroids Continue Mucinex Continue cough medicine as needed
--- NOTE | 2019-01-21 11:24 | CP.PCM.DIS ---
Provider - Provider Date of Admission: 01/11/19 17:23 Attending physician: Reza Vgea MD Consults: 01/11/19 19:00 [facility] Core Measures Referral Routine Comment: Physician Instructions: Reason For Exam: copd 01/11/19 21:07 Infectious Disease Consult Routine Comment: Consulting Provider: Yulissa Vu Consulting Physician: Yulissa Vu Reason for Consult: Pneumonia 01/16/19 13:20 Pulmonology Consult Routine Comment: Consulting Provider: Pierre Cornelius Consulting Physician: Pierre Cornelius Reason for Consult: Pertussis 01/17/19 12:00 ENT [Otolaryngology Consult] Routine Consulting Provider: Oleg Galloway Consulting Physician: Oleg Galloway Reason for Consult: PANSANUSITIS NOT RESPONDING TO IV AB Time Spent in preparation of Discharge (in minutes): 35 Diagnosis - Discharge Diagnosis (1) COPD exacerbation Status: Acute (2) Hypertension Status: Acute (3) Leukocytosis Status: Acute Hospital Course - Lab Results Lab Results: Micro Results 01/09/19 20:10 Blood-Venous Blood Culture - Final NO GROWTH AFTER 5 DAYS 01/09/19 20:10 Blood-Venous Gram Stain - Final TEST NOT PERFORMED 01/09/19 14:37 Blood-Venous Blood Culture - Final NO GROWTH AFTER 5 DAYS 01/09/19 14:37 Blood-Venous Gram Stain - Final TEST NOT PERFORMED 01/12/19 07:53 Naris MRSA Culture (Admit) - Final MRSA NOT DETECTED Most Recent Lab Values WBC 11.0 K/uL (4.8-10.8) H 01/21/19 07:28 RBC 5.62 Mil/uL (3.80-5.20) H 01/21/19 07:28 Hgb 15.4 g/dL (11.0-16.0) 01/21/19 07:28 Hct 46.4 % (34.0-47.0) 01/21/19 07:28 MCV 82.6 fL (81.0-99.0) 01/21/19 07:28 MCH 27.4 pg (27.0-31.0) 01/21/19 07:28 MCHC 33.1 g/dL (33.0-37.0) 01/21/19 07:28 RDW 13.7 % (11.5-14.5) 01/21/19 07:28 Plt Count 279 K/uL (130-400) 01/21/19 07:28 MPV 8.6 fL (7.2-11.7) 01/21/19 07:28 Neut % (Auto) 78.4 % (50.0-75.0) H 01/21/19 07:28 Lymph % (Auto) 13.4 % (20.0-40.0) L 01/21/19 07:28 Carter % (Auto) 7.8 % (0.0-10.0) 01/21/19 07:28 Eos % (Auto) 0.2 % (0.0-4.0) 01/21/19 07:28 Baso % (Auto) 0.2 % (0.0-2.0) 01/21/19 07:28 Neut # (Auto) 8.6 K/uL (1.8-7.0) H 01/21/19 07:28 Lymph # (Auto) 1.5 K/uL (1.0-4.3) 01/21/19 07:28 Carter # (Auto) 0.9 K/uL (0.0-0.8) H 01/21/19 07:28 Eos # (Auto) 0.0 K/uL (0.0-0.7) 01/21/19 07:28 Baso # (Auto) 0.0 K/uL (0.0-0.2) 01/21/19 07:28 Neutrophils % (Manual) 93 % (50-75) H 01/18/19 07:49 Band Neutrophils % 2 % (0-2) 01/13/19 07:50 Lymphocytes % (Manual) 5 % (20-40) L 01/18/19 07:49 Reactive Lymphs % 1 % (0-0) H 01/13/19 07:50 Monocytes % (Manual) 2 % (0-10) 01/18/19 07:49 Platelet Estimate Normal (NORMAL) 01/18/19 07:49 RBC Morphology Normal 01/15/19 07:58 Ovalocytes Slight 01/13/19 07:50 ESR 18 mm/hr (0-20) 01/12/19 06:42 D-Dimer, Quantitative 240 ng/mlDDU (0-243) 01/16/19 07:50 Sodium 132 mmol/L (132-148) 01/21/19 07:28 Potassium 3.7 mmol/L (3.6-5.2) 01/21/19 07:28 Chloride 94 mmol/L (98-107) L 01/21/19 07:28 Carbon Dioxide 34 mmol/L (22-30) H 01/21/19 07:28 Anion Gap 8 (10-20) L 01/21/19 07:28 BUN 36 mg/dL (7-17) H 01/21/19 07:28 Creatinine 0.9 mg/dL (0.7-1.2) 01/21/19 07:28 Est GFR ( Amer) > 60 01/21/19 07:28 Est GFR (Non-Af Amer) > 60 01/21/19 07:28 Random Glucose 95 mg/dL (65-105) D 01/21/19 07:28 Calcium 10.7 mg/dl (8.6-10.4) H 01/21/19 07:28 Total Bilirubin 0.8 mg/dL (0.2-1.3) 01/21/19 07:28 AST 32 U/L (14-36) 01/21/19 07:28 ALT 37 U/L (9-52) 01/21/19 07:28 Alkaline Phosphatase 77 U/L (38-126) 01/21/19 07:28 Troponin I < 0.0120 ng/mL (0.00-0.120) 01/09/19 11:57 C-React Prot High Sens 7.89 mg/L (1.00-3.00) H 01/12/19 06:42 Total Protein 6.2 g/dL (6.3-8.3) L 01/21/19 07:28 Albumin 3.7 g/dL (3.5-5.0) 01/21/19 07:28 Globulin 2.5 gm/dL (2.2-3.9) 01/21/19 07:28 Albumin/Globulin Ratio 1.5 (1.0-2.1) 01/21/19 07:28 25-OH Vitamin D Total 26.6 NG/ML (30.0-100.0) L 01/19/19 07:10 Bordetella pertussis Spec Source Swab 01/15/19 08:50 B. pertussis DNA (PCR) Not detected (Not Detected) 01/15/19 08:50 B.parapertussis DNA PCR Not detected (Not Detected) 01/15/19 08:50 Mycoplasma pneumon IgM Negative (NEGATIVE) 01/12/19 06:42 - Hospital Course Hospital Course: 68 y/o female,w/PMhx of COPD, presents to the ER complaining of shortness of breath and cough which has been present for the past 1 week. Patient states that she was evaluated for similar symptoms in [place] ER on 01/05/19. At the time, patient was treated with steroids and breathing treatments. She was discharged with prescription for steroids Out patient she did not improve and presented to er PT HAD PERSISTENT DRY COUGH WITH WHEEZING PERTUSSES SEROLOGY WAS NEG CXR , NOPNEUMONIA PT IMPROVED ON IV AB/STEROID SINUS CT ..SHOWED PANSINUSITIS , ENT RECOM. IV AB PT STABLE FOR HOME ON PO AB Discharge Exam - Head Exam Head Exam: NORMAL INSPECTION, NORMOCEPHALIC Discharge Plan - Follow Up Plan Condition: FAIR Disposition: HOME/ ROUTINE Instructions: Syncope (Fainting), COPD Including Emphysema (DC) Referrals: Reza Vega MD [Staff Provider] -
--- NOTE | 2019-01-21 14:03 | CP.PCM.PN ---
Subjective - Date & Time of Evaluation Date of Evaluation: 01/21/19 Time of Evaluation: 14:03 - Subjective Subjective: AFEBRILE, CLINICALLY IMPROVED , EDEMA SUBSIDING CASE DISCUSSED WITH [employer]. LABS REVIEWED Objective - Vital Signs/Intake and Output Vital Signs (last 24 hours): Temp Pulse Resp BP Pulse Ox 97.9 F 97 H 18 119/70 98 01/21/19 07:00 01/21/19 12:00 01/21/19 07:00 01/21/19 09:14 01/21/19 07:00 - Medications Medications: Current Medications Enoxaparin Sodium (Lovenox) 40 mg SC DAILY [facility] Last Admin: 01/21/19 09:15 Dose: 40 mg Ergocalciferol (Drisdol 50,000 Intl Units Cap) 1 cap PO Q7D [facility] Last Admin: 01/20/19 08:00 Dose: 1 cap Fluticasone Propionate (Flonase) 0 spr SWATI Q12H [facility] Last Admin: 01/21/19 08:35 Dose: 1 spr Furosemide (Lasix) 40 mg IVP DAILY [facility] Last Admin: 01/21/19 09:14 Dose: 40 mg Gabapentin (Neurontin) 100 mg PO Q8 [facility] Last Admin: 01/21/19 13:52 Dose: Not Given Guaifenesin (Mucinex La) 600 mg PO BID [facility] Last Admin: 01/21/19 09:14 Dose: 600 mg Hydrochlorothiazide (Hydrodiuril) 25 mg PO DAILY [facility] Last Admin: 01/21/19 09:17 Dose: 25 mg Ceftriaxone Sodium 1 gm/ (Sodium Chloride) 100 mls @ 100 mls/hr IVPB Q12H [facility]; Protocol Last Admin: 01/21/19 12:07 Dose: 100 mls/hr Azithromycin 500 mg/ Sodium (Chloride) 250 mls @ 250 mls/hr IVPB DAILY [facility]; Protocol Last Admin: 01/21/19 09:18 Dose: 250 mls/hr Losartan Potassium (Cozaar) 100 mg PO DAILY [facility] Last Admin: 01/21/19 09:14 Dose: 100 mg Methylprednisolone (Solu-Medrol) 40 mg IV Q12 [facility] Last Admin: 01/21/19 09:17 Dose: 40 mg Promethazine HCl/Codeine (Phenergan/Codeine Oral Syrup) 5 ml PO Q4 PRN PRN Reason: Cough Last Admin: 01/19/19 09:49 Dose: 5 ml Rosuvastatin Calcium (Crestor) 5 mg PO HS [facility] Last Admin: 01/20/19 21:46 Dose: 5 mg Zolpidem Tartrate (Ambien) 5 mg PO HS PRN PRN Reason: Insomnia Last Admin: 01/20/19 21:46 Dose: 5 mg - Labs Labs: 01/21/19 07:28 01/21/19 07:28 - Constitutional Appears: No Acute Distress - Head Exam Head Exam: NORMAL INSPECTION - Eye Exam Eye Exam: EOMI, PERRL. absent: Scleral icterus - ENT Exam ENT Exam: Normal Oropharynx - Neck Exam Neck Exam: Normal Inspection. absent: Lymphadenopathy - Respiratory Exam Respiratory Exam: Clear to Ausculation Bilateral, NORMAL BREATHING PATTERN - Cardiovascular Exam Cardiovascular Exam: REGULAR RHYTHM, +S1, +S2 - GI/Abdominal Exam GI & Abdominal Exam: Soft, Normal Bowel Sounds - Extremities Exam Extremities Exam: Normal Capillary Refill, Pedal Edema (1+). absent: Calf Tenderness - Neurological Exam Neurological Exam: Alert, Awake, CN II-XII Intact, Normal Gait, Oriented x3, Reflexes Normal - Psychiatric Exam Psychiatric exam: Normal Mood - Skin Skin Exam: Normal Color, Warm Assessment and Plan (1) Pansinusitis Status: Acute (2) COPD exacerbation Status: Acute (3) Hyperlipidemia Status: Acute (4) Hypertension Status: Acute - Assessment and Plan (Free Text) Plan: D/C IV ABX CAN SWITCH PT TO PO AUGMENTIN 875 PO BID X 10DAYS PO MEDROLPACK TAPERING DOSE IN AM ON LASIX PER PMD CONTINUE PO VIT D 5000UNIT DRISCOL 1TAB Q 7DAY X 12 DOSES. F/U IN OFFICE NEXT WEEK.
[2019-01-21 15:49] VITALS: BP 117/74; RESP 20; TEMP 98; O2SAT 96
[2019-01-21 16:29] VITALS: PULSE 100
--- NOTE | 2019-01-21 16:57 | CP.PCM.PN ---
Subjective - Date & Time of Evaluation Date of Evaluation: 01/21/19 Time of Evaluation: 16:57 - Subjective Subjective: PATIENT SEEN AND EXAMINED AT THE BEDSIDE Objective - Vital Signs/Intake and Output Vital Signs (last 24 hours): Temp Pulse Resp BP Pulse Ox 98.0 F 100 H 20 117/74 96 01/21/19 15:00 01/21/19 16:27 01/21/19 15:00 01/21/19 15:00 01/21/19 15:00 - Medications Medications: Current Medications Enoxaparin Sodium (Lovenox) 40 mg SC DAILY [facility] Last Admin: 01/21/19 09:15 Dose: 40 mg Ergocalciferol (Drisdol 50,000 Intl Units Cap) 1 cap PO Q7D [facility] Last Admin: 01/20/19 08:00 Dose: 1 cap Fluticasone Propionate (Flonase) 0 spr SWATI Q12H [facility] Last Admin: 01/21/19 08:35 Dose: 1 spr Furosemide (Lasix) 40 mg IVP DAILY [facility] Last Admin: 01/21/19 09:14 Dose: 40 mg Gabapentin (Neurontin) 100 mg PO Q8 [facility] Last Admin: 01/21/19 13:52 Dose: Not Given Guaifenesin (Mucinex La) 600 mg PO BID [facility] Last Admin: 01/21/19 09:14 Dose: 600 mg Hydrochlorothiazide (Hydrodiuril) 25 mg PO DAILY [facility] Last Admin: 01/21/19 09:17 Dose: 25 mg Ceftriaxone Sodium 1 gm/ (Sodium Chloride) 100 mls @ 100 mls/hr IVPB Q12H [facility]; Protocol Last Admin: 01/21/19 12:07 Dose: 100 mls/hr Azithromycin 500 mg/ Sodium (Chloride) 250 mls @ 250 mls/hr IVPB DAILY [facility]; Protocol Last Admin: 01/21/19 09:18 Dose: 250 mls/hr Losartan Potassium (Cozaar) 100 mg PO DAILY [facility] Last Admin: 01/21/19 09:14 Dose: 100 mg Methylprednisolone (Solu-Medrol) 40 mg IV Q12 [facility] Last Admin: 01/21/19 09:17 Dose: 40 mg Promethazine HCl/Codeine (Phenergan/Codeine Oral Syrup) 5 ml PO Q4 PRN PRN Reason: Cough Last Admin: 01/19/19 09:49 Dose: 5 ml Rosuvastatin Calcium (Crestor) 5 mg PO HS [facility] Last Admin: 01/20/19 21:46 Dose: 5 mg Zolpidem Tartrate (Ambien) 5 mg PO HS PRN PRN Reason: Insomnia Last Admin: 01/20/19 21:46 Dose: 5 mg - Labs Labs: 01/21/19 07:28 01/21/19 07:28 Assessment and Plan - Assessment and Plan (Free Text) Assessment: FOLLOW UP WITH DR RUDOLPH IN HIS OFFICE ----CALL FOR APPOINTMENT FOLLOW UP WITH DR Donnie AUSTIN IN HER OFFICE -----CALL FOR APPOINTMENT CONTINUE HOME MEDICATION NEW PRESCRIPTION GIVEN MEDROL DOSE / VIT D3 AND AUGMENTIN ACTIVITY TOLERATED CALL DR RUDOLPH OR GO TO THE EMERGENCY ROOM IF SYMPTOM RETURN OR WORSENING
== END 2019-01-21 20:01 | disposition home or self-care (01) | DRG 191 ==
LOC: C.ER 11:17 → C.5S 14:28 → OBSVTOIN 01-11 17:23 → C.5S 01-12 00:53
PROVIDERS: ADMIT Internal Medicine Cardiovascular Disease; ATTEND Internal Medicine Cardiovascular Disease
DX: J44.1 Chronic obstructive pulmonary disease with (acute) exacerbation (principal); M35.1 Other overlap syndromes; J43.9 Emphysema, unspecified; J34.2 Deviated nasal septum; J32.4 Chronic pansinusitis; J01.90 Acute sinusitis, unspecified; I10 Essential (primary) hypertension; E78.5 Hyperlipidemia, unspecified; G47.33 Obstructive sleep apnea (adult) (pediatric); Z77.29 Contact with and (suspected) exposure to other hazardous substances; T38.0X5A Adverse effect of glucocorticoids and synthetic analogues, initial encounter